=== PATIENT | female | born 1935 | race Caucasian/White ===

== ENCOUNTER 2018-07-17 18:03 | Inpatient (IN) | payer MEDICARE ==
[~2018-07-17] VITALS: Ht 162.6 cm; Wt 72.7 kg
[2018-07-17] MEDS ORDERED: ASPIRIN81 MG PO (18:06)
[2018-07-17] MEDS ORDERED: NORVASC5 MG PO (18:06)
[2018-07-17] MEDS ORDERED: PLAVIX75 MG PO (18:06)
[2018-07-17] MEDS ORDERED: COZAAR100 MG PO (18:06)
[2018-07-17] MEDS ORDERED: PROZAC10 MG PO (18:06)
[2018-07-17] MEDS ORDERED: ATIVAN1 MG PO (18:07)
[2018-07-17 19:01] VITALS: BP 183/59
--- NOTE | 2018-07-17 19:20 | NUR ---
PATIENT AWAKE AND ALERT, COLOR WNL FOR RACE, RESPIRATIONS EVEN AND UNLABORED. BLANKET GIVEN FOR COMFORT, HOB ADJUSTED FOR COMFORT. UPDATED ON PLAN OF CARE AND DELAYS IN CARE. WILL CONTINUE TO MONITOR.
--- NOTE | 2018-07-17 20:20 | NUR ---
PATIENT AWAKE AND ALERT. ASSISTED TO BEDSIDE COMMODE. FAMILY UPDATED ON PLAN OF CARE. WILL CONTINUE TO MONITOR.
[2018-07-17 20:24] LABS: BASOPHILS 0.2 % (0-2); EOSINOPHILS 0.3 % (0-7); HEMATOCRIT 40.6 % (36.0-48.0); HEMOGLOBIN 14.2 g/dL (12-16); IMMATURE GRANULOCYTES 0.3 % (0-5); LYMPHOCYTES 21.4 % (15-50); MCH 31.1 pg (26.0-34.0); MCV 88.8 fL (80.0-100.0); MEAN PLATELET VOLUME 10.1 fL (7.4-10.4); MONOCYTES 6.6 % (2-11); NEUTROPHILS 71.2 % (40-80); PLATELET COUNT 157 10x3/uL (130-400); RBC 4.57 10x6/uL (4.00-5.40); RDW 14.2 % (11.5-14.5)
[2018-07-17 20:31] VITALS: BP 172/63
[2018-07-17 20:47] LABS: ALBUMIN 3.4 g/dL (3.4-5.0); ALKALINE PHOSPHATASE 84 U/L (46-116); ALT (SGPT) 19 U/L (10-68); BILIRUBIN - TOTAL 1.32 mg/dL (0.2-1.3); CALC OSMOLALITY 279 mosm/kg (275-300); CALCIUM 8.2 mg/dL (8.5-10.1); CARBON DIOXIDE 23.1 mmol/L (21.0-32.0); CHLORIDE - SERUM 105 mmol/L (98-107); CREATININE - SERUM 1.1 mg/dL (0.6-1.3); GLUCOSE 118 mg/dL (74-106); POTASSIUM - SERUM 4.1 mmol/L (3.5-5.1); PROTEIN - SERUM 6.4 g/dL (6.4-8.2); SODIUM 139 mmol/L (136-145); UREA NITROGEN 15 mg/dL (7-18); eGFR NON AFRICAN AMERICAN 50 mL/min (90-120)
[2018-07-17 20:58] LABS: CKMB 1.1 U/L (0.0-3.6); CREATINE KINASE 52 UL (21-215); TROPONIN-I 0.029 ng/mL (0.000-0.060)
[2018-07-17 21:01] VITALS: BP 194/59
--- NOTE | 2018-07-17 21:20 | NUR ---
PATIENT AWAKE AND ALERT. FAMILY AT BEDSIDE. NO NEEDS NOTED. WILL CONTINUE TO MONITOR.
--- NOTE | 2018-07-17 22:28 | NUR ---
PATIENT GIVEN SANDWICH TRAY AND JUICE. NO OTHER NEEDS NOTED. WILL CONTINUE TO MONITOR.
[2018-07-17 23:15] VITALS: BP 159/55
[2018-07-18] VITALS (8 sets, daily range): BP systolic 124–226; BP diastolic 43–83; Ht 162.6 cm; Wt 72.7 kg
--- NOTE | 2018-07-18 | NUR ---
PATIENT SLEEPING, RESPIRATIONS EVEN AND UNLABORED. NO NEEDS NOTED. WILL CONTINUE TO MONITOR.
--- NOTE | 2018-07-18 01:00 | NUR ---
PATIENT AWOKE TO VERBAL STIMULI. SHE WAS GIVEN A WARM BLANKET AND NONSLIP SOCKS. SHE WAS UPDATED ON PLAN OF CARE AND DELAYS IN CARE. WILL CONTINUE TO MONITOR.
--- NOTE | 2018-07-18 02:00 | NUR ---
PATIENT SLEEPING, RESPIRATIONS EVEN AND UNLABORED. NO NEEDS NOTED. WILL CONTINUE TO MONITOR.
[2018-07-18 02:57] LABS: BASOPHILS 0.2 % (0-2); EOSINOPHILS 0.7 % (0-7); HEMATOCRIT 37.6 % (36.0-48.0); HEMOGLOBIN 13.1 g/dL (12-16); IMMATURE GRANULOCYTES 0.2 % (0-5); LYMPHOCYTES 25.5 % (15-50); MCH 30.9 pg (26.0-34.0); MCHC 34.8 g/dL (31.0-37.0); MCV 88.7 fL (80.0-100.0); MEAN PLATELET VOLUME 10.3 fL (7.4-10.4); MONOCYTES 8.5 % (2-11); NEUTROPHILS 64.9 % (40-80); PLATELET COUNT 153 10x3/uL (130-400); RBC 4.24 10x6/uL (4.00-5.40); RDW 14.2 % (11.5-14.5); WBC 5.9 10x3/uL (4.8-10.8)
--- NOTE | 2018-07-18 03:00 | NUR ---
PATIENT SLEEPIG. RESPIRATIONS EVEN AND UNLABORED. COLOR WNL FOR RACE. WILL CONTINUE TO MONITOR.
[2018-07-18 03:11] LABS: ANION GAP 10.8 mmol/L (8-16); CALCIUM 8.3 mg/dL (8.5-10.1); CARBON DIOXIDE 28.3 mmol/L (21.0-32.0); CREATININE - SERUM 1.3 mg/dL (0.6-1.3); POTASSIUM - SERUM 4.1 mmol/L (3.5-5.1); TROPONIN-I 0.022 ng/mL (0.000-0.060)
[2018-07-18 19:33] LABS: COLOR YELLOW (YELLOW)
[2018-07-18 19:34] LABS: APPEARANCE HAZY (CLEAR); BILIRUBIN NEGATIVE (NEGATIVE); EPITHELIAL CELLS 0-5 /hpf (0-5); GLUCOSE NEGATIVE (NEGATIVE); KETONE NEGATIVE (NEGATIVE); NITRITE POSITIVE (NEGATIVE); PROTEIN 1+ mg/dL (NEGATIVE); RED CELLS - URINE 0-5 /hpf (0-5); UROBILINOGEN NORMAL (NORMAL); WHITE CELLS - URINE 25-50 /hpf (0-5)
[2018-07-18 19:35] LABS: BACTERIA MANY /hpf (NONE SEEN)
--- NOTE | 2018-07-18 19:41 | NUR ---
AWAKE,ALERT,NO COMPLAINTS VOICED. RESP EVEN AND UNLABORED. SL TO LEFT HAND INTACT WITHOUT REDNESS OR EDEMA NOTED.NATALIE EUNICE TO BED AND FUNCTIONING. CL IN REACH
[2018-07-19 01:16] VITALS: BP 185/58
--- NOTE | 2018-07-19 03:03 | NUR ---
I have reviewed this patient and I concur with the Shift Assessment completed by the Licensed Practical Nurse today this shift.
[2018-07-19 04:37] VITALS: BP 190/64
[2018-07-19 05:26] LABS: BASOPHILS 0.2 % (0-2); EOSINOPHILS 1.5 % (0-7); HEMATOCRIT 39.3 % (36.0-48.0); HEMOGLOBIN 13.4 g/dL (12-16); IMMATURE GRANULOCYTES 0.2 % (0-5); LYMPHOCYTES 37.2 % (15-50); MCH 30.8 pg (26.0-34.0); MCHC 34.1 g/dL (31.0-37.0); MCV 90.3 fL (80.0-100.0); MEAN PLATELET VOLUME 10.5 fL (7.4-10.4); MONOCYTES 8.2 % (2-11); NEUTROPHILS 52.7 % (40-80); PLATELET COUNT 153 10x3/uL (130-400); RBC 4.35 10x6/uL (4.00-5.40); RDW 14.1 % (11.5-14.5); WBC 5.4 10x3/uL (4.8-10.8)
[2018-07-19 05:47] LABS: ANION GAP 11.8 mmol/L (8-16); CALCIUM 8.5 mg/dL (8.5-10.1); CARBON DIOXIDE 26.3 mmol/L (21.0-32.0); CREATININE - SERUM 1.2 mg/dL (0.6-1.3); POTASSIUM - SERUM 4.1 mmol/L (3.5-5.1)
--- NOTE | 2018-07-19 08:30 | NUR ---
PATIENT ADMITTED FOR HYPERTENSIVE CRISIS, WITH B/P TRENDING DOWN SINCE YESTERDAY, PATIENT STARTED ON IV ANTIBIOTICS FOR UTI. UNABLE TO FLUSH IV TO LEFT HAND WITH REDNESS NOTED AND PAIN. RESTARTED IV TO RIGHT FOREARM WITH 22G X1 STICK. PATIENT TOLERATED WELL.
[2018-07-19 10:39] VITALS: BP 174/49
[2018-07-19 13:03] VITALS: BP 153/47
[2018-07-19 17:59] VITALS: BP 108/51
--- NOTE | 2018-07-19 19:00 | NUR ---
BEDSIDE REPORT RECEIVED AND CARE OF PT ASSUMED. PT LYING IN LOW SULLIVAN'S POSITION WITH EYES CLOSED. IV IN RIGHT FA SALINE LOCKED. TELEMETRY IN USE AND READING SB AT THIS ASSESSMENT. WILL MONITOR FOR NEEDS.
--- NOTE | 2018-07-19 19:30 | NUR ---
PT CLEANED AND ALL BEDDING AND GOWN CHANGED DUE TO INCONTINENCE. WILL CONTINUE TO MONITOR FOR NEEDS.
[2018-07-19 20:20] VITALS: BP 156/55
--- NOTE | 2018-07-19 20:42 | NUR ---
HS MEDICATIONS GIVEN. WILL CONTINUE TO MONITOR FOR NEEDS. BED ALARM ACTIVATED FOR SAFETY.
[2018-07-20 00:31] VITALS: BP 167/50
--- NOTE | 2018-07-20 03:15 | NUR ---
ALL LINENS AND GOWN CHANGED DUE TO INCONTINENCE. POSITIONED IN BED FOR COMFORT.
[2018-07-20 04:59] LABS: BASOPHILS 0.2 % (0-2); EOSINOPHILS 2.3 % (0-7); HEMATOCRIT 38.7 % (36.0-48.0); HEMOGLOBIN 13.3 g/dL (12-16); IMMATURE GRANULOCYTES 0.2 % (0-5); LYMPHOCYTES 31.4 % (15-50); MCH 31.1 pg (26.0-34.0); MCHC 34.4 g/dL (31.0-37.0); MCV 90.6 fL (80.0-100.0); MEAN PLATELET VOLUME 10.3 fL (7.4-10.4); MONOCYTES 9.2 % (2-11); NEUTROPHILS 56.7 % (40-80); PLATELET COUNT 151 10x3/uL (130-400); RBC 4.27 10x6/uL (4.00-5.40); RDW 14.1 % (11.5-14.5); WBC 5.7 10x3/uL (4.8-10.8)
[2018-07-20 05:20] VITALS: BP 160/49
[2018-07-20 05:33] LABS: CALCIUM 8.5 mg/dL (8.5-10.1); CARBON DIOXIDE 27.1 mmol/L (21.0-32.0); CREATININE - SERUM 1.4 mg/dL (0.6-1.3); POTASSIUM - SERUM 4.1 mmol/L (3.5-5.1)
[2018-07-20 09:38] VITALS: BP 187/46
[2018-07-20] MEDS ORDERED: NORVASC10 MG PO (11:13)
[2018-07-20] MEDS ORDERED: LEVOFLOXACIN500 MG PO (11:14)
[2018-07-20] MEDS ORDERED: HYDRALAZINE HCL50 MG PO (11:14)
[2018-07-20] MEDS ORDERED: METOPROLOL TART50 MG PO (11:14)
--- NOTE | 2018-07-20 12:17 | MORECARE ---
CASE MANAGEMENT DISCHARGE SUMMARY PATIENT: SHERI SORIA UNIT: [id number] ADM DATE: 07/18/18 AGE: 82 : 36 SEX: F ROOM/BED: D.2217 AUTHOR: JOHN ARCE PHYSICIAN: REFERRING PHYSICIAN: JACKIE CLEMENTE MD DATE OF SERVICE: 07/20/18 Discharge Plan Patient Name: SHERI SORIA Facility: [facility]:[place] : 1935 Planned Disposition: Home Health Service Anticipated Discharge Date: Discharge Date: Expected LOS: Initial Reviewer: [email or web address] Initial Review Date: 07/18/2018 Generated: 07/20/18 1:16 pm Patient Name: SHERI SORIA Page [id number] at 1217 All edits/amendments must be made on the electronic document DICTATION DATE: 07/20/18 1216 GAS TRANSFER OPERATOR: KLAUDIA 07/20/18 1216 RPT#: [id number] DC DATE: STATUS: ADM IN [facility] [address] [place] [address] END OF REPORT
--- NOTE | 2018-07-20 12:26 | MORECARE ---
CASE MANAGEMENT DISCHARGE SUMMARY PATIENT: SHERI SORIA UNIT: [id number] ADM DATE: 07/18/18 AGE: 82 : 36 SEX: F ROOM/BED: D.2217 AUTHOR: [email or web address] PHYSICIAN: REFERRING PHYSICIAN: JACKIE CLEMENTE MD DATE OF SERVICE: 07/20/18 Discharge Plan Patient Name: SHERI SORIA Facility: [facility]:[place] : 1935 Planned Disposition: Home Health Service Anticipated Discharge Date: Discharge Date: Expected LOS: Initial Reviewer: [email or web address] Initial Review Date: 07/18/2018 Generated: 07/20/18 1:25 pm Comments DCP- Discharge Planning Updated by [email or web address]: Christiana Hugo on 07/20/18 11:[address] Patient Name: SHERI SORIA Admission Status: ER Accout number: [id number] Admission Date: 07-18-2018 : 1935 Admission Diagnosis: Attending: JACKIE CLEMENTE Current LOS: 2 Anticipated DC Date: Planned Disposition: Home Health Service Primary Insurance: MEDICARE A & B Discharge Planning Comments: CM met with patient to complete initial dc planning assessment. CM educated patient on the CM role and verbal consent given by patient to complete assessment. Patient lives at home with her where she is independent with her care. At discharge patient plans to return home and feels this is a safe discharge. 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 She stated that she is current with [facility] [employer] [facility] (her granddaughter works for them) She has a walker, shower chair, wheelchair at home. Patient denied known discharge needs at this time. CM will continue to follow and will assist as needed with dc plans/needs. Database Management System Specialist: Christiana Hugo DCPIA - Discharge Planning Initial Assessment Updated by [email or web address]: Christiana Hugo on 07/20/18 12:17 pm * Is the patient Alert and Oriented? Yes * How many steps to enter\exit or inside your home? * PCP [facility] * [facility] * Preadmission Environment Home with Family * ADLs Independent * Equipment Rolling Walker Shower Chair Walker Wheelchair * List name and contact numbers for known caregivers / representatives who currently or will assist patient after discharge: IRVING (JAMIE) [phone] RONNA (GILMA) * Verbal permission to speak to the caregivers and representatives has been obtained from the patient. Yes * Community resources currently utilized Home Health * Please name any agencies selected above. [facility] * Additional services required to return to the preadmission environment? No * Can the patient safely return to the preadmission environment? Yes * Has this patient been hospitalized within the prior 30 days at any hospital? No Last DP export: 07/20/18 11:17 a Patient Name: SHERI SORIA Page [phone] at 1226 All edits/amendments must be made on the electronic document DICTATION DATE: 07/20/181224 PERFUSIONIST: KLAUDIA 07/20/181224 RPT#: [id number] DC DATE: STATUS: ADM IN [facility] [address] [place] [address] END OF REPORT
--- NOTE | 2018-07-20 12:30 | NUR ---
PATIENT STATED SHE HAS HAD HER FLU SHOT
[2018-07-20 13:55] VITALS: BP 164/52
== END 2018-07-20 14:26 | disposition home health service (06) | DRG 305 ==
LOC: D.ER 18:03 → D.MS 21:47 → OBSVTIME 21:47 → D.EDHOLD 21:47 → D.MS 07-18 05:30
PROVIDERS: Family Medicine; ADMIT Internal Medicine Nephrology; ATTEND Internal Medicine Nephrology
DX: I16.0 Hypertensive urgency (principal); N39.0 Urinary tract infection, site not specified; F03.90 Unspecified dementia, unspecified severity, without behavioral disturbance, psychotic disturbance, mood disturbance, and anxiety

== ENCOUNTER 2018-08-06 23:10 | Emergency (ER) | payer MEDICARE ==
[~2018-08-06] VITALS: Ht 162.6 cm; Wt 79.5 kg
[~2018-08-06 23:10] MED LIST: ASPIRIN81 MG PO; ATIVAN1 MG PO; COZAAR100 MG PO; HYDRALAZINE HCL50 MG PO; LEVOFLOXACIN500 MG PO; METOPROLOL TART50 MG PO; NORVASC10 MG PO; NORVASC5 MG PO; PLAVIX75 MG PO; PROZAC10 MG PO
[2018-08-06 23:22] VITALS: Ht 162.6 cm; Wt 79.5 kg
[2018-08-07 01:22] LABS: APPEARANCE CLEAR (CLEAR); BILIRUBIN NEGATIVE (NEGATIVE); COLOR STRAW (YELLOW); GLUCOSE NEGATIVE (NEGATIVE); KETONE NEGATIVE (NEGATIVE); NITRITE NEGATIVE (NEGATIVE); PROTEIN 2+ mg/dL (NEGATIVE); UROBILINOGEN NORMAL (NORMAL)
[2018-08-07 01:31] LABS: HEMATOCRIT 37.6 % (36.0-48.0); LYMPHOCYTES 23.5 % (15-50); MCH 30.5 pg (26.0-34.0); MCHC 34.6 g/dL (31.0-37.0); MCV 88.3 fL (80.0-100.0); MEAN PLATELET VOLUME 9.2 fL (7.4-10.4); NEUTROPHILS 69.4 % (40-80); PLATELET COUNT 171 10x3/uL (130-400); RBC 4.26 10x6/uL (4.00-5.40); WBC 6.6 10x3/uL (4.8-10.8)
[2018-08-07 01:34] LABS: BACTERIA FEW /hpf (NONE SEEN); EPITHELIAL CELLS 0-5 /hpf (0-5); RED CELLS - URINE 0-5 /hpf (0-5); WHITE CELLS - URINE RARE /hpf (0-5)
[2018-08-07 01:36] LABS: ALBUMIN 3.2 g/dL (3.4-5.0); ANION GAP 12.6 mmol/L (8-16); BILIRUBIN - TOTAL 1.08 mg/dL (0.2-1.3); CALCIUM 8.4 mg/dL (8.5-10.1); CARBON DIOXIDE 26.3 mmol/L (21.0-32.0); CREATININE - SERUM 1.1 mg/dL (0.6-1.3); POTASSIUM - SERUM 3.9 mmol/L (3.5-5.1); PROTEIN - SERUM 6.8 g/dL (6.4-8.2)
[2018-08-07 01:41] LABS: TROPONIN-I 0.022 ng/mL (0.000-0.060)
[2018-08-07] MEDS ORDERED: ZOFRAN8 MG PO (01:51)
[2018-08-07 02:53] VITALS: BP 198/59
== END 2018-08-07 02:53 | disposition home or self-care (01) ==
LOC: D.ER 23:10
PROVIDERS: Family Medicine
DX: R11.0 Nausea (principal); R03.0 Elevated blood-pressure reading, without diagnosis of hypertension; Z86.73 Personal history of transient ischemic attack (TIA), and cerebral infarction without residual deficits

== ENCOUNTER 2020-10-12 15:13 | Inpatient (IN) | payer MEDICARE ==
[~2020-10-12] VITALS: Ht 162.6 cm; Wt 59.0 kg
--- NOTE | ~2020-10-12 | HEMODYNAMI ---
PATIENT:SHERI SORIA MEDICAL RECORD: [id number] : 37 LOCATION:[facility] D.2119 ADMISSION DATE: 10/12/20 Generatedon:114:54 Patient name: SHERI SORIA Patient #: [id number] SSN: [id number] : 1935 Date of study: 10/14/2020 Page: Of Hemodynamic Procedure Report Patient Data Patient Demographics Procedure consent was obtained First Name: SHERI Gender: Female Last Name: YANG : 1935 Patient #: [id number] Age: 84 year(s) Race: SSN: [id number] Additional ID: [id number] Contact details Address: [address] [place] [address] State: [place] City: [facility] Zip code: [address] Past Medical History Allergies Allergen Reaction Date Comments Reported JHONATAN inhibitors 10/14/2020 Sulfa drugs 10/14/2020 Admission Admission Data Admission Date: 10/12/2020 Admission Time: 20:01 Arrival Date: 10/13/2020 Arrival Time: 0:00 Admit Source: Other Insurance Payor: Medicare Room #: D.2119 [facility] #: [id number] Height (in.): 64 BSA: 1.64 (m2) Height (cm.): 162.56 BMI: 22.71 (kg/m2) Weight (lbs.): 132.28 Weight (kg.): 60 Lab Results Lab Result Date: 10/14/2020 Lab Result Time: 0:00 Biochemistry Name Units Result Min Max BUN mg/dl 43 --(----)-* 7 18 Creatinine mg/dl 1.6 --(----)-* 0.6 1.3 eGFR ml/min 33 *-(----)-- 90 120 NONAFRICAN CBC Name Units Result Min Max Hematocrit % 40 -*(----)-- 42 54 Hemoglobin g/dl 13.8 --(*---)-- 13.5 17.5 Procedure Procedure Types Cath Procedure Diagnostic Procedure [facility] w/Coronaries FFR/IVUS FFR Initial Sedation Charges Moderate Sedation 25-39 minutes PCI Procedure Coronary Stent Coronary Stent Initial Hemochron ACT Test Procedure Description Procedure Date Procedure Date: 10/14/2020 Procedure Start Time: 14:12 Procedure End Time: 14:48 Procedure Staff Name Function Jace Ramirez MD Performing Physician Demetria Ruvalcaba RT Monitor Maame Hernandez RT Scrub Alli Dooley RN Nurse Indication Shortness of breath Procedure Data Cath Procedure Fluoroscopy Diagnostic fluoroscopy Total fluoroscopy Time: 9.4 time: 9.4 min min Diagnostic fluoroscopy Total fluoroscopy dose: 486 dose: 486 mGy mGy Contrast Material Contrast Material Type Amount (ml) Isovue 370 131 Entry Location Entry Primary Successful Side Size Upsize Upsize Entry Closure Succes sful Closure Location (Fr) 1 (Fr) 2 (Fr) Remarks Device Remarks Femoral Right 5 Fr 6 Fr artery Short Estimated blood loss: 10 ml Diagnostic catheters Device Type Used For End Catheter Placement MULTIPACK JL 4.0 5Fr Procedure catheter MULTIPACK 3DRC 5Fr Procedure catheter MULTIPACK Pigtail 5 Fr Procedure catheter DIAGNOSTIC 6Fr JL 4.0 Procedure catheter ([id number]) Procedure Complications No complications Procedure Medications Medication Administration Route Dosage 0.9% NaCl I.V. 100 ml/hr Oxygen etCO2 Nasal cannula 2 l/min Heparin Flush Bag added to field 2 bags (1000units/500ml NS) Lidocaine 2% added to field 20 Versed I.V. 0.5 mg Fentanyl I.V. 25 mcg Versed I.V. 0.5 mg Heparin Bolus I.V. 6000 units Plavix P.O. 600 mg Mechanical Ventricular Support Other mechanical ventricular support: Hemodynamics Rest BSA: 1.64 (m2) HGB: 13.8 (g/dl) O2 Consumption: Estimated: 134.79 (ml/min) O2 Co nsumption indexed: Estimated:82.19 (ml/min/m) Heart Rate: 51 (bpm) Pressure Samples Time Site Value (mmHg) Purpose Heart Use Rate(bpm) 14:20 LV 154/-3,8 Snapshot 60 14:21 AO 129/68(81) Pullback 123 Gradients Valve Time Site Site 2 Mean SEP/DFP Peak To Heart Use 1 (mmHg) (sec/min) Peak Rate (mmHg) (bpm) Aortic 14:21 LV AO 123 129/68(81) Snapshots Pre Cath Intra NCS Post Cath Vital Signs Time Heart Resp SPO2 etCO2 NIBP (mmHg) Rhythm Pain Sedation Rate (ipm) (%) (mmHg) Status Level (bpm) 14:05:07 51 12 95 24 150/54(115) SB 0 (11) 10(A) , No pain 14:10:15 47 10 94 27.7 141/55(111) SB 0 (11) 10(A) , No pain 14:14:39 47 10 96 25.4 137/51(101) SB 0 (11) 9(A) , No pain 14:18:57 48 10 95 25.4 142/62(105) SB 0 (11) 9(A) , No pain 14:23:19 53 10 96 14.2 147/52(113) SB 0 (11) 9(A) , No pain 14:28:35 48 10 93 30 148/48(105) SB 0 (11) 9(A) , No pain 14:32:59 50 10 94 9 150/55(107) SB 0 (11) 9(A) , No pain 14:38:16 49 10 96 0.7 156/56(112) SB 0 (11) 9(A) , No pain 14:42:43 49 10 96 0 151/61(117) SB 0 (11) 9(A) , No pain 14:47:09 47 10 95 0 160/60(116) SB 0 (11) 9(A) , No pain 14:51:37 48 12 96 0 157/55(117) SB 0 (11) 10(A) , No pain Medications Time Medication Route Dose Verified Delivered Reason Notes Effectiveness by by 14:05:03 0.9% NaCl I.V. 100 Jace Alli used for ml/hr James Dooley balance weigher 14:05:13 Oxygen etCO2 2 Jace Alli used for Nasal l/min James Dooley balance weigher cannula 14:05:21 Heparin Flush added 2 Jace Jace for local Bag to bags James Ramirez MD anesthetic (1000units/500ml field NS) 14:05:30 Lidocaine 2% added 20ml Jace Jace for local to vial James Ramirez MD anesthetic field 14:08:04 Versed I.V. 0.5 Jace Alli for sedation mg James Dooley RN 14:08:11 Fentanyl I.V. 25 Jace Alli for sedation mcg James Dooley RN 14:12:51 Versed I.V. 0.5 Jace Alli for sedation mg James Dooley RN 14:25:21 Heparin Bolus I.V. 6000 Jace Alli for verif ied units James Dooley RN anticoagulation per fidelia moscoso rn 14:53:33 Plavix P.O. 600 Jace Alli for mg James Dooley RN antiplatelet therapy Procedure Log Time Note 13:42:02 Demetria Ruvalcaba RT(R) sent for patient. Start room use. 13:42:03 Time tracking: Regular hours (M-F 7:00 - 5:00) 13:42:07 Plan of Care:Hemodynamics will remain stable., Cardiac rhythm will remain stable., Comfort level will be maintained., Respiratory function will remain adequate., Patient/ family verbilizes understanding of procedure., Procedure tolerated without complication.. 13:44:52 H&P Date Dictated: 10/12/2020 ER History on chart.. 13:45:02 Patient allergic to JHONATAN inhibitors 13:45:06 Patient allergic to Sulfa drugs 13:46:22 Lab Result : Creatinine 1.6 mg/dl 13:46:22 Lab Result : BUN 43 mg/dl 13:46:22 Lab Result : eGFR NONAFRICAN 33 ml/min 13:46:22 Lab Result : Hematocrit 40 % 13:46:22 Lab Result : Hemoglobin 13.8 g/dl 13:46:38 Indication : Shortness of breath 13:46:52 Patient Weight : 132.28 lbs 13:46:55 Patient Height : 64 inches 13:47:02 Arrival Date: 10/13/2020 12:00:00 AM 13:52:44 Patient received from Med II to CCL 1 Alert and oriented. Tansferred to table in Supine position. 13:52:46 Warm blankets applied, and perez hugger turned on for patient comfort. 13:52:47 Correct patient and procedure confirmed by team. 13:52:48 ECG and BP/O2 sat monitors applied to patient. 13:52:48 Pre-procedure instructions explained to patient. 13:52:49 Pre-op teaching completed and patient verbalized understanding. 14:02:51 Vital chart was started 14:02:55 Family in patients room. 14:02:56 Patient NPO since Midnight. 14:03:00 Is patient on blood thinner?No 14:03:07 Patient not . Patient is over age 55. 14:03:09 Previous problem with sedation/anesthesia? No ? 14:03:12 Patient diabetic? No. 14:03:14 Snore? Yes 14:03:15 Sleep apnea? No 14:03:16 Deviated septum? No 14:03:17 Opens mouth fully? Yes 14:03:18 Sticks out tongue? Yes 14:03:20 Dentures? No ? 14:03:22 Airway obstruction? Yes ? 14:03:26 Pre procedure: right dorsailis pedis pulse 1+ Palpable, but thready & weak; easily obliterated 14:03:33 IV patent on arrival in right wrist with 0.9% NaCl at KVO. 14:03:35 Lab results completed and on chart. 14:03:38 Right groin area was prepped with chlora-prep and draped in sterile fashion 14:03:39 Alarms reviewed by R. N. 14:03:39 Sharps counted by scrub and verified by R.N. 14:03:41 Use device set Femoral Dx 14:03:42 ACIST Syringe (83559) opened to sterile field. 14:03:43 Bag Decanter (2002S) opened to sterile field. 14:03:43 ACIST Hand Control (04710) opened to sterile field. 14:03:44 ACIST Manifold (69394) opened to sterile field. 14:03:45 Tegaderm 4 x 4 (1626W) opened to sterile field. 14:03:45 Medline Cath Pack ([id number]) opened to sterile field. 14:03:46 DIAGNOSTIC Multipack 5Fr catheter set (OM0911) opened to sterile field. 14:03:47 SHEATH 5FR [place] (AWF112) opened to sterile field. 14:03:47 EMERALD Guide Wire (470-098) opened to sterile field. 14:04:29 ACC Patient presents with Unstable Angina CCS Anginal Class 2--Slight limitation of ordinary activity. 14:04:31 Admit Source: Other 14:04:34 Procedure Status Urgent Heart Cath (IP). 14:04:40 Signed procedure consent form obtained from verbally. 14:04:45 Is the patient allergic to Iodine/contrast media? No. 14:04:48 Was the patient premedicated? No 14:04:55 Patient pain scale 0/10 ?. 14:04:59 Stress Test: no; N/A ? 14:05:03 0.9% NaCl 100 ml/hr I.V. was administered by Alli Dooley RN; used for procedure; Verbal order read back and verified. 14:05:13 Oxygen 2 l/min etCO2 Nasal cannula was administered by Alli Dooley RN; used for procedure; Verbal order read back and verified. 14:05:21 Heparin Flush Bag (1000units/500ml NS) 2 bags added to field was administered by Jace Ramirez MD; for local anesthetic; Verbal order read back and verified. 14:05:30 Lidocaine 2% 20ml vial added to field was administered by Jace Ramirez MD; for local anesthetic; Verbal order read back and verified. 14:06:20 Other mechanical ventricular support: 14:06:28 Insurance Payor : Medicare 14:07:05 Baseline sample Acquired. 14:07:06 Full Disclosure recording started 14:07:13 Rhythm: sinus rhythm 14:07:17 --------ALL STOP TIME OUT------ 14:07:19 Final Timeout: patient, procedure, and site verified with staff and physician. All members of the team are in agreement. 14:07:20 Right groin site verified by team. 14:07:25 Fire Safety Assessment: A--An alcohol-based skin anteseptic being used preoperatively., C--Open oxygen or nitrous oxide is being used., D--An ESU, laser, or fiber-optic light is being used. 14:07:29 Physical assessment completed. ASA score P 2 - A patient with mild systemic disease as per Jace Ramirez MD. 14:07:32 3b) 30-44 Moderately reduced kidney function. 14:07:34 Maximum allowable contrast dose (3.7 X eGFR X 0.75)92 ml. 14:07:38 Sedation plan: IV Moderate Sedation Medication:Versed, Fentanyl 14:08:04 Versed 0.5 mg I.V. was administered by Alli Dooley RN; for sedation; Verbal order read back and verified. 14:08:11 Fentanyl 25 mcg I.V. was administered by Alli Dooley RN; for sedation; Verbal order read back and verified. 14:12:02 Procedure started. 14:12:51 Versed 0.5 mg I.V. was administered by Alli Dooley RN; for sedation; Verbal order read back and verified. 14:12:59 Local anesthetic to right femoral artery with Lidocaine 2% by Jace Ramirez MD.INITIAL ACCESS ONLY 14:14:52 J WIRE INSERTED. 14:14:56 A 5 Fr sheath was inserted into the Right Femoral artery 14:15:42 A MULTIPACK JL 4.0 5Fr catheter was advanced over the wire and used for Procedure. 14:16:10 LCA angiography performed. 14:16:14 Injector settings: Ml/sec: 3, Volume: 6, 14:17:13 Catheter exchanged over wire. 14:17:39 A MULTIPACK 3DRC 5Fr catheter was advanced over the wire and used for Procedure. 14:18:04 RCA angiography performed. 14:18:08 Injector settings: Ml/sec: 3, Volume: 6, 14:18:50 Catheter exchanged over wire. 14:19:37 A MULTIPACK Pigtail 5 Fr catheter was advanced over the wire and used for Procedure. 14:19:45 LV gram done using GUEVARA 14:20:42 LV hemodynamics recorded. 14:20:46 Injector settings: Ml/sec: 5, Volume: 15, 14:21:12 EF : 30 % 14:21:21 Catheter exchanged over wire. 14:21:25 Proceeding to intervention. 14:21:32 Use device set RAMIREZ PCI 14:21:34 SHEATH 6FR [place] (IUF106) opened to sterile field. 14:21:35 INFLATOR Merit BasixCompak (OR1003) opened to sterile field. 14:21:36 TUBING High Pressure Extension Tubing (James) ([id number]) opened to sterile field. 14:22:19 [place] OmniWire (22740) opened to sterile field. 14:23:20 Sheath upsized to a 6 Fr Short. 14:23:52 A DIAGNOSTIC 6Fr JL 4.0 catheter ([id number]) was advanced over the wire and used for Procedure. 14:24:51 6 Fr JL 4 guide catheter was inserted over the wire 14:25:21 Heparin Bolus 6000 units I.V. was administered by Alli Dooley RN; for anticoagulation; verified per fidelia moscoso rn Verbal order read back and verified. 14:26:01 Pressure wire advanced. 14:29:24 Wire advanced across lesion. 14:31:30 RCA lesion measured at .33 with IFR 14:34:13 IV Extension Set opened to sterile field. 14:34:53 UNABLE TO CROSS WITH STENT REMOVING STENT. 14:36:17 Inflate balloon Inflation number: 1 A EUPHORA 2.0 x 30 Balloon ([id number]) was prepped and advanced across the Prox RCA , then inflated to 14 YUNIER for 0:13 (min:sec) . 14:36:33 Inflation number: 2 The EUPHORA 2.0 x 30 Balloon ([id number]) was reinflated across the Prox RCA , to 14 YUNIER for 0:13 (min:sec) . 14:36:57 Balloon removed over the wire. 14:39:28 Place stent Inflation Number: 3 A FRANCISCO RX 3.0 x 38 stent ([id number]) was prepped and advanced across the Prox RCA . The stent was deployed at 14 YUNIER for 0:20 (min:sec) . 14:40:11 Stent catheter was removed intact over wire. 14:42:38 Place stent Inflation Number: 4 A FRANCISCO RX 3.0 x 15 stent ([id number]) was prepped and advanced across the Prox RCA . The stent was deployed at 14 YUNIER for 0:14 (min:sec) . 14:43:12 Stent catheter was removed intact over wire. 14:43:13 Wire removed. 14:43:13 Guide catheter removed. 14:44:12 EXOSEAL 6Fr (EX600) opened to sterile field. 14:44:22 Fluoroscopy time 09.40 minutes. 14:44:27 Fluoroscopy dose: 486 mGy 14:44:27 Flurop Dose total: 486 14:44:39 Dose Area Product 25770 mGy/cm. 14:45:02 Procedure ended.(Physican Out) 14:45:12 Contrast amount:Isovue 370 131ml. 14:45:15 Maximum allowable dose exceeded? No. 14:45:16 Sharps counted by scrub and verified by R.N. 14:45:26 Post-op/insertion site Right Femoral artery dressed using a 4 x 4 and Tegaderm. 14:45:32 Post right femoral artery:stable, soft, clean and dry 14:45:34 Post Procedure Pulses reassessed and unchanged 14:45:36 Post procedure: right dorsailis pedis pulse 2+ Normal; easily identifiable; not easily obliterated. 14:45:40 Post-procedure physical assessment completed. ASA score P 2 - A patient with mild systemic disease as per Jace Ramirez MD. 14:45:43 Post procedure rhythm: unchanged. 14:45:45 Estimated blood loss: 10 ml 14:45:47 Post procedure instruction explained to patient.Patient verbalizes understanding. 14:45:47 Patient needs reinforcement of post procedure teaching. 14:47:13 Procedure type changed to Cath procedure, Diagnostic procedure, LHC, C w/Coronaries, FFR/IVUS, FFR Initial, Sedation Charges, Moderate Sedation 25-39 minutes, PCI procedure, Coronary Stent, Coronary Stent Initial, Hemochron ACT Test 14:48:25 Procedure and supply charges have been captured, reviewed, submitted and are correct. 14:48:28 Procedure Complication : No complications 14:48:32 [facility] Findings: MVD- PCI performed (see procedure note) 14:48:33 Operative report dictated upon procedure completion. 14:48:34 See physician's report for complete and final results. 14:48:35 Report given to [facility]. 14:48:39 Patient transfered to [facility] with Bed. 14:48:42 Procedure ended. 14:48:42 Full Disclosure recording stopped 14:48:49 ACC-PCI Only Patient was given prescriptions, or instructed by Jace Ramirez MD to start/continue the following medications upon discharge: Plavix 14:48:50 End room use (Document Last) 14:49:03 End room use (Document Last) 14:49:36 ACT drawn and resulted at 380 seconds. (normal therapeutic range 180-240 seconds). 14:51:46 End room use (Document Last) 14:53:33 Plavix 600 mg P.O. was administered by Alli Dooley RN; for antiplatelet therapy; Verbal order read back and verified. 14:54:23 Vital chart was stopped Intervention Summary Intervention Notes Time ActionType Lesion and Equipment Used Action# Pressure Duration Attributes 14:36:17 Inflate Prox RCA EUPHORA 2.0 x 1 14 00:13 balloon 30 Balloon ([id number]) 14:36:33 Reinflate Prox RCA EUPHORA 2.0 x 2 14 00:13 balloon 30 Balloon ([id number]) 14:39:28 Place stent Prox RCA FRANCISCO RX 3.0 x 3 14 00:21 38 stent ([id number]) 14:42:38 Place stent Prox RCA FRANCISCO RX 3.0 x 4 14 00:14 15 stent ([id number]) Device Usage Item Name Manufacture Quantity Catalog Hospital Part [facility] Lot# / Number Charge Number Stock Stock Serial# Code ACIST Syringe Acist 1 28218 346068 420922 932240 20 (40507) Medical Systems Inc Bag Decanter Microtek 1 2001S 428825 51658 872173 5 (2001S) Medical Inc. ACIST Hand Acist 1 73319 313527 064201 330529 5 Control Medical (02983) Systems Inc ACIST Manifold Acist 1 92739 862666 885485 736972 5 (95492) Medical Systems Inc Tegaderm 4 x 4 3M 1 1626W 998684 585842 876522 5 (1626W) Medline Cath Medline 1 [id number] 968407 68378 043324 5 Pack ([id number]) DIAGNOSTIC Cardinal 1 RF2596 688757 67521 628422 30 Multipack 5Fr Health catheter set (LO1682) SHEATH 5FR Terumo 1 WCU465 625266 777470 588823 5 [place] (GAT887) EMERALD Guide Cardinal 1 502-455 932293 390610 815817 5 Wire (502-455) Health MULTIPACK JL Cardinal 1 033461 5 4.0 5Fr Health catheter MULTIPACK 3DRC Cardinal 1 294856 5 5Fr catheter Health MULTIPACK Cardinal 1 238493 5 Pigtail 5 Fr Health catheter SHEATH 6FR Terumo 1 ZDR830 364371 943596 345828 40 [place] (NOK938) INFLATOR Merit Merit 1 QD2240 336085 723736 804693 15 BasixCompak Medical (KA7129) TUBING High Merit 1 DR1224W 096492 10439 777243 10 Pressure Medical Extension Tubing (Ramirez) ([id number]) [place] 1 0004262 923076 55134 9918 5 OmniWire (33954) DIAGNOSTIC 6Fr Cardinal 1 [id number] 927483 064408 766599 1 JL 4.0 Health catheter (044981R) IV Extension Hospira 1 672448 14035 549797 5 Set EUPHORA 2.0 x Medtronic 1 [id number] 541704 301657 322751 5 [id number] 30 Balloon (KKE0432N) FRANCISCO RX 3.0 x Medtronic 1 [id number] 263265 6864785 058057 5 [id number] 38 stent ([id number]) FRANCISCO RX 3.0 x Medtronic 1 [id number] 684914 9817691 992468 5 [id number] 15 stent ([id number]) EXOSEAL 6Fr Cardinal 1 EX600 566913 094094 325839 10 (EX600) Health Signature Audit [place] Stage Time Signature Unsigned Intra-Procedure 10/14/2020 Demetria Ruvalcaba 2:49:03 PM RT(R) Intra-Procedure 10/14/2020 Alli Dooley RN 2:51:46 PM Intra-Procedure 10/14/2020 Jace Ramirez MD 2:54:21 PM [facility] [address] [place] [address]
[~2020-10-12 15:13] MED LIST changes: +ZOFRAN8 MG PO
[2020-10-12 16:19] LABS: APTT 21.3 SECONDS (22.8-39.4)
[2020-10-12 16:20] LABS: INR 1.06 (0.85-1.17); PROTIME 12.8 SECONDS (11.6-15.0)
[2020-10-12 16:24] LABS: BASOPHILS 0.6 % (0-2); EOSINOPHILS 1.1 % (0-7); HEMATOCRIT 41.4 % (36.0-48.0); LYMPHOCYTES 24.8 % (15-50); MCH 30.4 pg (26.0-34.0); MCHC 33.9 g/dL (31.0-37.0); MCV 89.8 fL (80.0-100.0); MEAN PLATELET VOLUME 8.2 fL (7.4-10.4); MONOCYTES 8.3 % (2-11); NEUTROPHILS 65.2 % (40-80); PLATELET COUNT 167 10x3/uL (130-400); RBC 4.61 10x6/uL (4.00-5.40); RDW 14.5 % (11.5-14.5); WBC 5.5 10x3/uL (4.8-10.8)
[2020-10-12 16:46] LABS: CALC OSMOLALITY 280 mosm/kg (275-300); CALCIUM 8.5 mg/dL (8.5-10.1); CARBON DIOXIDE 23.4 mmol/L (21.0-32.0); CHLORIDE - SERUM 105 mmol/L (98-107); CREATININE - SERUM 1.2 mg/dL (0.6-1.3); GLUCOSE 104 mg/dL (74-106); POTASSIUM - SERUM 4.4 mmol/L (3.5-5.1); SODIUM 138 mmol/L (136-145); UREA NITROGEN 26 mg/dL (7-18); eGFR NON AFRICAN AMERICAN 45 mL/min (90-120)
[2020-10-12 17:02] VITALS: BP 211/67
[2020-10-12 17:07] LABS: ALBUMIN 3.3 g/dL (3.4-5.0); ALKALINE PHOSPHATASE 98 U/L (30-120); ALT (SGPT) 24 U/L (10-68); BILIRUBIN - TOTAL 2.13 mg/dL (0.2-1.3); CREATINE KINASE 66 UL (21-215); PRO BNP 34295 pg/mL (0-450); PROTEIN - SERUM 6.6 g/dL (6.4-8.2)
[2020-10-12 17:13] LABS: TROPONIN-I 0.181 ng/mL (0.000-0.060)
[2020-10-12 18:28] VITALS: BP 225/105
--- NOTE | 2020-10-12 20:29 | NUR ---
LARGE URINE ELIMINATED, CHANGED BEDDING. PT MOVED UP IN BED FOR COMFORT.
[2020-10-12 20:54] VITALS: BP 180/70
[2020-10-12] MEDS ORDERED: XANAX0.25 MG PO (22:05)
[2020-10-12] MEDS ORDERED: CLONIDINE HCL0.1 MG PO (22:06)
[2020-10-12] MEDS ORDERED: TOPROL XL25 MG PO (22:07)
[2020-10-12] MEDS ORDERED: COLACE100 MG PO (22:07)
[2020-10-13] VITALS (7 sets, daily range): BP systolic 160–207; BP diastolic 53–70; Ht 162.6 cm; Wt 59.0 kg
[2020-10-13 01:58] LABS: CKMB 2.7 U/L (0.0-3.6); CREATINE KINASE 80 UL (21-215)
[2020-10-13 02:00] LABS: TROPONIN-I 0.319 ng/mL (0.000-0.060)
[2020-10-13 06:31] LABS: HEMATOCRIT 41.7 % (36.0-48.0); HEMOGLOBIN 14.3 g/dL (12-16); MCH 30.5 pg (26.0-34.0); MCHC 34.3 g/dL (31.0-37.0); MCV 89.1 fL (80.0-100.0); MEAN PLATELET VOLUME 9.1 fL (7.4-10.4); PLATELET COUNT 160 10x3/uL (130-400); RBC 4.68 10x6/uL (4.00-5.40); RDW 14.4 % (11.5-14.5)
[2020-10-13 06:34] LABS: WBC 2.9 10x3/uL (4.8-10.8)
[2020-10-13 06:53] LABS: ALBUMIN 3.1 g/dL (3.4-5.0); ALKALINE PHOSPHATASE 103 U/L (30-120); ALT (SGPT) 25 U/L (10-68); BILIRUBIN - TOTAL 1.83 mg/dL (0.2-1.3); CALCIUM 8.8 mg/dL (8.5-10.1); CHLORIDE - SERUM 104 mmol/L (98-107); CHOL - HDL RATIO 3.5 ratio (2.3-4.1); CHOLESTEROL, TOTAL 203 mg/dL (0-200); CKMB 2.6 U/L (0.0-3.6); CREATINE KINASE 92 UL (21-215); CREATININE - SERUM 1.4 mg/dL (0.6-1.3); HDL CHOLESTEROL 58 mg/dL (32-96); LDL CHOLESTEROL 135 mg/dL (0-100); LDL-HDL RATIO 2.3 ratio (1.5-3.5); PHOSPHOROUS 2.7 mg/dL (2.5-4.9); POTASSIUM - SERUM 4.3 mmol/L (3.5-5.1); PROTEIN - SERUM 6.6 g/dL (6.4-8.2); SODIUM 139 mmol/L (136-145); TRIGLYCERIDE 54 mg/dL (30-200); eGFR NON AFRICAN AMERICAN 38 mL/min (90-120)
[2020-10-13 06:55] LABS: CALC OSMOLALITY 289 mosm/kg (275-300); GLUCOSE 172 mg/dL (74-106); TROPONIN-I 0.317 ng/mL (0.000-0.060); UREA NITROGEN 34 mg/dL (7-18)
--- NOTE | 2020-10-13 07:20 | NUR ---
RECIEVE REPORT. RESTING IN BED WITH EYES CLOSED. NO SIGNS OF DISTRESS. CONTINUE PLAN OF CARE AND SAFETY PRECAUTIONS.
[2020-10-13 12:27] LABS: CREATINE KINASE 99 UL (21-215)
[2020-10-13 12:34] LABS: TROPONIN-I 0.304 ng/mL (0.000-0.060)
[2020-10-13 13:53] LABS: LYMPHOCYTES 18 % (15-50); MONOCYTES 5 % (2-11); NEUTROPHILS 76 % (40-80); PLATELET ESTIMATE NORMAL
[2020-10-14] VITALS (11 sets, daily range): BP systolic 116–183; BP diastolic 45–78
--- NOTE | 2020-10-14 00:34 | NUR ---
EARLIER IN SHIFT, PT ASSISTED TO BEDSIDE COMMODE. SHANTANU WELL. VOIDED 100CC OF YELLOW URINE. PT IS ALERT NO APPARENT DISTRESS.
[2020-10-14 06:16] LABS: BASOPHILS 0.2 % (0-2); EOSINOPHILS 0.1 % (0-7); HEMOGLOBIN 13.8 g/dL (12-16); MCH 30.6 pg (26.0-34.0); MCHC 34.5 g/dL (31.0-37.0); MCV 88.9 fL (80.0-100.0); MEAN PLATELET VOLUME 8.7 fL (7.4-10.4); MONOCYTES 6.5 % (2-11); NEUTROPHILS 71.2 % (40-80); RDW 14.4 % (11.5-14.5)
[2020-10-14 06:32] LABS: ALBUMIN 3.4 g/dL (3.4-5.0); ANION GAP 13.3 mmol/L (8-16); BILIRUBIN - TOTAL 1.58 mg/dL (0.2-1.3); CALCIUM 8.8 mg/dL (8.5-10.1); CARBON DIOXIDE 25.4 mmol/L (21.0-32.0); CREATININE - SERUM 1.6 mg/dL (0.6-1.3); MAGNESIUM - SERUM 2.1 mg/dL (1.8-2.4); PHOSPHOROUS 3.5 mg/dL (2.5-4.9); POTASSIUM - SERUM 3.7 mmol/L (3.5-5.1); PROTEIN - SERUM 6.8 g/dL (6.4-8.2)
[2020-10-14 06:58] LABS: PLATELET COUNT 207 10x3/uL (130-400); WBC 9.4 10x3/uL (4.8-10.8)
[2020-10-14 09:27] LABS: CHOL - HDL RATIO 3.5 ratio (2.3-4.1); LDL-HDL RATIO 2.3 ratio (1.5-3.5)
--- NOTE | 2020-10-14 14:00 | NUR ---
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
--- NOTE | 2020-10-14 20:07 | NUR ---
RECIEVED UP IN BED WITH EYES OPEN. ALERT AND CONFUSED. DSG TO RT GROIN CDI. DENIES ANY NEEDS AT THIS TIME.
[2020-10-15] VITALS: BP 144/55
[2020-10-15 05:38] VITALS: BP 169/49
[2020-10-15 06:03] LABS: BASOPHILS 0.7 % (0-2); HEMATOCRIT 40.4 % (36.0-48.0); HEMOGLOBIN 13.9 g/dL (12-16); MCH 30.6 pg (26.0-34.0); MCHC 34.4 g/dL (31.0-37.0); MCV 89.1 fL (80.0-100.0); MEAN PLATELET VOLUME 8.7 fL (7.4-10.4); NEUTROPHILS 64.3 % (40-80); PLATELET COUNT 191 10x3/uL (130-400); RBC 4.54 10x6/uL (4.00-5.40); RDW 14.4 % (11.5-14.5)
[2020-10-15 06:12] LABS: WBC 6.8 10x3/uL (4.8-10.8)
[2020-10-15 06:21] LABS: ALBUMIN 3.2 g/dL (3.4-5.0); ANION GAP 13.3 mmol/L (8-16); BILIRUBIN - TOTAL 1.72 mg/dL (0.2-1.3); CALCIUM 8.4 mg/dL (8.5-10.1); CARBON DIOXIDE 26.2 mmol/L (21.0-32.0); CREATININE - SERUM 1.6 mg/dL (0.6-1.3); MAGNESIUM - SERUM 2.1 mg/dL (1.8-2.4); PHOSPHOROUS 3.5 mg/dL (2.5-4.9); POTASSIUM - SERUM 3.5 mmol/L (3.5-5.1); PROTEIN - SERUM 6.4 g/dL (6.4-8.2)
[2020-10-15 08:50] VITALS: BP 144/50
[2020-10-15 11:00] VITALS: BP 185/58
--- NOTE | 2020-10-15 12:34 | NUR ---
Nutrition Follow-up: S/p cath yesterday. Nursing reports that pt did not feel like eating this AM. Diet: Regular PO intake: 0-50% Wt: 130# (10/13) Labs noted: K+ 3.5, BUN 35, Cre 1.6, GFR 33, Glu 113, Ca 8.4, PO4 3.5, Alb 3.2 Meds noted: Colace, Protonix, Lasix, electrolyte protocol -Encourage PO intake and honor food preferences within diet restrictions. -Offer nutrition supplements. -Need new wt. -RD follow-up: 10/19
[2020-10-15 15:30] VITALS: BP 170/50
--- NOTE | 2020-10-15 16:20 | MORECARE ---
CASE MANAGEMENT DISCHARGE SUMMARY PATIENT: SHERI SORIA UNIT: [id number] ADM DATE: 10/12/20 AGE: 84 : 36 SEX: F ROOM/BED: D.2119 AUTHOR: YAZMIN,DOC PHYSICIAN: REFERRING PHYSICIAN: BAR TRIVEDI MD DATE OF SERVICE: 10/15/20 Case Management Discharge Planning Summary DCP REVIEW SUMMARY ANTICIPATED D/C DATE: 10/15/2020 EXPECTED LOS : 3 CASE STATUS: DCP Initiated INITIAL REVIEW: 10/15/2020 INITIAL REVIEWER: Susi Willams FINAL DISCHARGE DISPOSITION: : FINAL REVIEWER: FINAL REVIEW DATE: DCP [employer] Questions & Answers QUESTION: ANSWER : PATIENT: SHERI SORIA ENCOUNTER: [id number] MEDICAL RECORD#: [id number] ADMISSION DATE: 10/12/2020 DISCHARGE DATE: ATTENDING MD: BAR REYES : AGE: 84 MARITAL STATUS: M DC PLAN ID: [id number] FACILITY: [facility] PRINTED ON: 10/15/20 16:20 CT All edits/amendments must be made on the electronic document DICTATION DATE: 10/15/201619 PRESS WRITER: DM 10/15/201619 RPT#: [id number] DC DATE: STATUS: ADM IN [facility] [address] [place] [address] END OF REPORT
--- NOTE | 2020-10-15 16:36 | MORECARE ---
CASE MANAGEMENT DISCHARGE SUMMARY PATIENT: SHERI SORIA UNIT: [id number] ADM DATE: 10/12/20 AGE: 84 : 36 SEX: F ROOM/BED: D.9825 AUTHOR: JOHN ARCE PHYSICIAN: REFERRING PHYSICIAN: BAR TRIVEDI MD DATE OF SERVICE: 10/15/20 Case Management Discharge Planning Summary COMMENTS ENTERED DATE: 10/15/20 16:23 CT COMMENT TYPE: Discharge Planning REVIEWER: Susi Willams CM met with patient to discuss discharge planning/needs. Patient states she lives in a single story home with her spouse. States she has no steps to enter the home. States she has a personal healthcare science specialist named Sheri that comes to her home Monday through Monday every day and assist with meal preparation, bathing and dressing. States her does her medication management. States she has a 2 wheeled walker, but typically is in her wheelchair in the home. She has a PCP in [place], but states she cannot remember his name. I informed her of the availability of rehab, home health and additional DME, she declines needs. States "I'm going home." States her grandson will transport her. CM will continue to follow and assist with discharge planning/needs. MDP REVIEW SUMMARY ANTICIPATED D/C DATE: 10/15/2020 EXPECTED LOS : 3 CASE STATUS: DCP Initiated INITIAL REVIEW: 10/15/2020 INITIAL REVIEWER: Susi Willams FINAL DISCHARGE DISPOSITION: : FINAL REVIEWER: FINAL REVIEW DATE: MDP Focus Questions & Answers DCP Evaluation QUESTION: ANSWER Patient and/or caregiver agree upon recommended discharge plan? : Yes Patient's current cognitive status: : *Oriented to person, place, situation, time and present Patient's ability to cope with chronic illness : d. No chronic illness Patient gives permission to discuss discharge plans with: (name, relationship and number) : Yaakov Soria - [phone] Does the patient have the ability to pay for or attain post discharge needs / services? : Yes Physical Status: : Partial care dependence Physical Status: : Mobility impaired Equipment needed for post hospitalization: : None Is there a likelihood that the patient will require additional services to return to the preadmission environment? : No Living Arrangements: : Home with Spouse/Significant Other Partial Dependence, assistance required for: : Dressing Partial Dependence, assistance required for: : Bathing Partial Dependence, assistance required for: : Ambulation / Mobility Results of this evaluation have been discussed with: : Patient Living arrangements comments: : Florentino Soria Baseline cognitive status: : Alert Baseline cognitive status: : *Oriented to person, place, situation, time and present [facility]acy name([facility] Does Patient have transportation to get home and to follow-up medical appointments when discharged from the hospital? : Yes Would patient like to participate in any Care Coordination programs (if applicable): : Not applicable Comments: : States her grandsonYaakov will transport her home Does the patient have electricity at home? : Yes Equipment in use: : Wheelchair Equipment in use: : Walker - Rolling Equipment in use: : Shower Chair Equipment in use: : Other Equipment in use: : Cane - Single Leg Other Equipment comments: : Grab bars in shower Mental health screen: : No mental health history Psychosocial status: : Adult with physical limitations Abuse/Neglect: : None Resources / Services in place: : Private duty care Resources / Services in place: : Medication assistance Contact information for resources in use: : Sheri - does not know the name of the agency DCP Re-evaluation QUESTION: ANSWER Would patient like to participate in any Care Coordination programs (if applicable): : Not applicable PATIENT: SHERI SORIA ENCOUNTER: [id number] MEDICAL RECORD#: [id number] ADMISSION DATE: 10/12/2020 DISCHARGE DATE: ATTENDING MD: BAR REYES : AGE: 84 MARITAL STATUS: M DC PLAN ID: [id number] FACILITY: [facility] PRINTED ON: 10/15/20 16:36 CT All edits/amendments must be made on the electronic document DICTATION DATE: 10/15/201635 COMMUNICATION ARTS LECTURER: DM 10/15/201635 RPT#: [id number] DC DATE: STATUS: ADM IN [facility] [address] [place] [address] END OF REPORT
[2020-10-15 21:34] VITALS: BP 153/54
[2020-10-16 04:32] VITALS: BP 166/49
[2020-10-16 07:50] VITALS: BP 158/44
[2020-10-16 10:55] VITALS: BP 177/41
--- NOTE | 2020-10-16 11:00 | NUR ---
UP AMBULATING HALLWAY WITH PT ASSIST.
[2020-10-16 12:41] LABS: BASOPHILS 0.6 % (0-2); HEMATOCRIT 44.2 % (36.0-48.0); HEMOGLOBIN 14.9 g/dL (12-16); LYMPHOCYTES 24.2 % (15-50); MCH 30.5 pg (26.0-34.0); MCHC 33.8 g/dL (31.0-37.0); MCV 90.2 fL (80.0-100.0); MEAN PLATELET VOLUME 8.8 fL (7.4-10.4); MONOCYTES 8.7 % (2-11); NEUTROPHILS 65.5 % (40-80); PLATELET COUNT 195 10x3/uL (130-400); RDW 14.7 % (11.5-14.5); WBC 6.7 10x3/uL (4.8-10.8)
[2020-10-16 12:54] LABS: ALBUMIN 3.4 g/dL (3.4-5.0); ANION GAP 17.4 mmol/L (8-16); BILIRUBIN - TOTAL 2.36 mg/dL (0.2-1.3); CALCIUM 8.6 mg/dL (8.5-10.1); CARBON DIOXIDE 24.2 mmol/L (21.0-32.0); CREATININE - SERUM 1.7 mg/dL (0.6-1.3); MAGNESIUM - SERUM 2.1 mg/dL (1.8-2.4); PHOSPHOROUS 3.5 mg/dL (2.5-4.9); POTASSIUM - SERUM 3.6 mmol/L (3.5-5.1); PROTEIN - SERUM 6.8 g/dL (6.4-8.2)
[2020-10-16 15:59] VITALS: BP 144/55
[2020-10-16 21:33] VITALS: BP 142/47
[2020-10-17 00:06] VITALS: BP 164/59
[2020-10-17 05:07] VITALS: BP 160/65
[2020-10-17 05:34] LABS: BASOPHILS 0.6 % (0-2); EOSINOPHILS 2.2 % (0-7); HEMATOCRIT 41.6 % (36.0-48.0); HEMOGLOBIN 14.2 g/dL (12-16); LYMPHOCYTES 32.2 % (15-50); MCH 30.6 pg (26.0-34.0); MEAN PLATELET VOLUME 8.8 fL (7.4-10.4); MONOCYTES 10.6 % (2-11); NEUTROPHILS 54.4 % (40-80); RBC 4.62 10x6/uL (4.00-5.40); RDW 14.6 % (11.5-14.5); WBC 5.1 10x3/uL (4.8-10.8)
[2020-10-17 05:35] LABS: PLATELET COUNT 155 10x3/uL (130-400)
[2020-10-17 05:49] LABS: ALBUMIN 3.2 g/dL (3.4-5.0); ANION GAP 12.3 mmol/L (8-16); BILIRUBIN - TOTAL 1.78 mg/dL (0.2-1.3); CALCIUM 8.5 mg/dL (8.5-10.1); CREATININE - SERUM 1.7 mg/dL (0.6-1.3); MAGNESIUM - SERUM 2.3 mg/dL (1.8-2.4); PHOSPHOROUS 3.7 mg/dL (2.5-4.9); POTASSIUM - SERUM 3.3 mmol/L (3.5-5.1); PROTEIN - SERUM 6.4 g/dL (6.4-8.2)
[2020-10-17 07:59] VITALS: BP 146/51; BP 177/56
--- NOTE | 2020-10-17 08:00 | NUR ---
PT RECEIVED AWAKE AND ALERT IN BED. HAVING SOME ANXIETY AND NOT SURE WHAT IS GOING ON, STATES SHE IS SCARED.
--- NOTE | 2020-10-17 10:00 | NUR ---
PT'S FAMILY CALLED FOR HER TO HELP CALM HER DOWN. MEDS GIVEN INCLUDING ANXIETY MED. THERAPY AMBULATED HER AND SHE IS BACK IN BED NOW AND CALMER.
[2020-10-17 12:08] VITALS: BP 128/46
[2020-10-17 15:18] VITALS: BP 131/54
[2020-10-17 20:00] VITALS: BP 168/50
[2020-10-18] VITALS: BP 165/71
[2020-10-18 04:00] VITALS: BP 189/50
[2020-10-18 08:23] VITALS: BP 180/55
[2020-10-18 10:53] LABS: BASOPHILS 0.3 % (0-2); EOSINOPHILS 2.9 % (0-7); HEMATOCRIT 41.4 % (36.0-48.0); HEMOGLOBIN 14.5 g/dL (12-16); IMMATURE GRANULOCYTES 0.2 % (0-5); LYMPHOCYTE ABS# 1.37 10x3/uL (1.18-3.74); LYMPHOCYTES 22.2 % (15-50); MCH 30.9 pg (26.0-34.0); MCV 88.1 fL (80.0-100.0); MEAN PLATELET VOLUME 10.7 fL (7.4-10.4); MONOCYTES 9.6 % (2-11); NEUTROPHIL ABS# 3.99 10x3/uL (1.56-6.13); NEUTROPHILS 64.8 % (40-80); PLATELET COUNT 188 10x3/uL (130-400); RDW 14.4 % (11.5-14.5); WBC 6.2 10x3/uL (4.8-10.8)
[2020-10-18 11:16] LABS: ALBUMIN 3.1 g/dL (3.4-5.0); ANION GAP 11.9 mmol/L (8-16); BILIRUBIN - TOTAL 1.55 mg/dL (0.2-1.3); CALCIUM 8.4 mg/dL (8.5-10.1); CARBON DIOXIDE 26.4 mmol/L (21.0-32.0); CREATININE - SERUM 1.6 mg/dL (0.6-1.3); POTASSIUM - SERUM 3.3 mmol/L (3.5-5.1); PROTEIN - SERUM 6.3 g/dL (6.4-8.2)
[2020-10-18 15:05] VITALS: BP 160/55
[2020-10-18 20:56] VITALS: BP 195/59
[2020-10-19 00:53] VITALS: BP 164/53
[2020-10-19 05:23] VITALS: BP 167/50
[2020-10-19 08:45] LABS: ALBUMIN 3.1 g/dL (3.4-5.0); ANION GAP 13.2 mmol/L (8-16); BILIRUBIN - TOTAL 1.51 mg/dL (0.2-1.3); CALCIUM 8.5 mg/dL (8.5-10.1); CARBON DIOXIDE 24.9 mmol/L (21.0-32.0); CREATININE - SERUM 1.2 mg/dL (0.6-1.3); POTASSIUM - SERUM 3.1 mmol/L (3.5-5.1); PROTEIN - SERUM 6.2 g/dL (6.4-8.2)
[2020-10-19 08:58] LABS: BASOPHILS 0.5 % (0-2); EOSINOPHILS 3.3 % (0-7); HEMATOCRIT 41.5 % (36.0-48.0); HEMOGLOBIN 14.2 g/dL (12-16); LYMPHOCYTES 26.7 % (15-50); MCH 30.7 pg (26.0-34.0); MCHC 34.3 g/dL (31.0-37.0); MCV 89.6 fL (80.0-100.0); MEAN PLATELET VOLUME 9.3 fL (7.4-10.4); MONOCYTES 9.2 % (2-11); NEUTROPHILS 60.3 % (40-80); PLATELET COUNT 158 10x3/uL (130-400); RBC 4.63 10x6/uL (4.00-5.40); RDW 14.4 % (11.5-14.5); WBC 4.9 10x3/uL (4.8-10.8)
[2020-10-19 09:43] VITALS: BP 179/90
[2020-10-19 12:17] VITALS: BP 150/54
--- NOTE | 2020-10-19 12:53 | NUR ---
Nutrition Reassessment/Follow-up: Pt confused. Poor PO intake reported. Awaiting placement. Diet: Regular PO intake: 25% x 3 yesterday No new wt; last wt: 130# (10/13) Labs noted: K+ 3.1, BUN 29, GFR 45, Alb 3.1 Meds noted: Colace, Protonix, NS @ 50, electrolyte protocol Nutrition Diagnosis: -Inadequate energy intake R/T Dx, appetite, AMS, advanced age AEB poor PO intake reported. -Altered nutrition-related lab values R/T kidney dysfunction AEB BUN 29, GFR 45. Nutrition Goals: -PO intake >=75% avg of meals/snacks. -Meet est fluid needs without fluid overload. -Stable dry wt. Nutrition Intervention: -Nutrition needs unchanged since initial assessment; no new wt available. -Encourage PO intake and honor food preferences. -+Ensure with meals. -Need new wt. -RD will follow up within 3-4 days.
--- NOTE | 2020-10-19 19:37 | NUR ---
RECIEVED UP IN BED WITH EYES CLOSED. EASILY AROUSES WITH VERBAL STIMULI. ORIENTED TO NAME. DENIES ANY NEEDS AND NO S/S OF DISTRESS OBSERVED.
[2020-10-19 20:00] VITALS: BP 169/59
--- NOTE | 2020-10-19 21:24 | MORECARE ---
CASE MANAGEMENT DISCHARGE SUMMARY PATIENT: SHERI SORIA UNIT: [id number] ADM DATE: 10/12/20 AGE: 84 : 36 SEX: F ROOM/BED: D.8251 AUTHOR: YAZMIN,DOC PHYSICIAN: REFERRING PHYSICIAN: BAR TRIVEDI MD DATE OF SERVICE: 10/19/20 Case Management Discharge Planning Summary COMMENTS ENTERED DATE: 10/19/20 21:16 CT COMMENT TYPE: Discharge Planning REVIEWER: Briseida Saha LATE ENTRY 10/17/20 CM spoke with patient since she stated that she keeps telling physicians that she is to week to go home. Patient was very drowsy when CM spoke with her but she stated that she now feels like she may need rehab before she goes home. ENTERED DATE: 10/15/20 16:23 CT COMMENT TYPE: Discharge Planning REVIEWER: Susi Willams CM met with patient to discuss discharge planning/needs. Patient states she lives in a single story home with her spouse. States she has no steps to enter the home. States she has a personal director long term care named Sheri that comes to her home Monday through Monday every day and assist with meal preparation, bathing and dressing. States her does her medication management. States she has a 2 wheeled walker, but typically is in her wheelchair in the home. She has a PCP in [place], but states she cannot remember his name. I informed her of the availability of rehab, home health and additional DME, she declines needs. States "I'm going home." States her grandson will transport her. CM will continue to follow and assist with discharge planning/needs. IAP REVIEW SUMMARY ANTICIPATED D/C DATE: 10/15/2020 EXPECTED LOS : 3 CASE STATUS: DCP Initiated INITIAL REVIEW: 10/15/2020 INITIAL REVIEWER: Susi Willams FINAL DISCHARGE DISPOSITION: : FINAL REVIEWER: FINAL REVIEW DATE: DCP Focus Questions & Answers DCP Evaluation QUESTION: ANSWER Patient gives permission to discuss discharge plans with: (name, relationship and number) : Yaakov Soria - [phone] Patient's ability to cope with chronic illness : d. No chronic illness Patient's current cognitive status: : *Oriented to person, place, situation, time and present Patient and/or caregiver agree upon recommended discharge plan? : Yes Physical Status: : Mobility impaired Physical Status: : Partial care dependence Does the patient have the ability to pay for or attain post discharge needs / services? : Yes Partial Dependence, assistance required for: : Ambulation / Mobility Partial Dependence, assistance required for: : Bathing Partial Dependence, assistance required for: : Dressing Living Arrangements: : Home with Spouse/Significant Other Is there a likelihood that the patient will require additional services to return to the preadmission environment? : No Equipment needed for post hospitalization: : None Living arrangements comments: : Florentino Soria Baseline cognitive status: : *Oriented to person, place, situation, time and present Baseline cognitive status: : Alert Results of this evaluation have been discussed with: : Patient Pharmacy name(s): : [facility] Does Patient have transportation to get home and to follow-up medical appointments when discharged from the hospital? : Yes Would patient like to participate in any Care Coordination programs (if applicable): : Not applicable Comments: : States her grandsonYaakov will transport her home Does the patient have electricity at home? : Yes Equipment in use: : Cane - Single Leg Equipment in use: : Other Equipment in use: : Shower Chair Equipment in use: : Walker - Rolling Equipment in use: : Wheelchair Other Equipment comments: : Grab bars in shower Mental health screen: : No mental health history Psychosocial status: : Adult with physical limitations Abuse/Neglect: : None Resources / Services in place: : Medication assistance Resources / Services in place: : Private duty care Contact information for resources in use: : Sheri - does not know the name of the agency DCP Re-evaluation QUESTION: ANSWER Would patient like to participate in any Care Coordination programs (if applicable): : Not applicable PATIENT: SHERI SORIA ENCOUNTER: [id number] MEDICAL RECORD#: [id number] ADMISSION DATE: 10/12/2020 DISCHARGE DATE: ATTENDING MD: BRA REYES : AGE: 84 MARITAL STATUS: M DC PLAN ID: [id number] FACILITY: [facility] PRINTED ON: 10/19/20 21:23 CT All edits/amendments must be made on the electronic document DICTATION DATE: 10/19/202122 GRINDING MACHINE TENDER: KLAUDIA 10/19/202122 RPT#: [id number] [place] DATE: STATUS: ADM IN [facility] [address] [place] [address] END OF REPORT
--- NOTE | 2020-10-19 21:34 | MORECARE ---
CASE MANAGEMENT DISCHARGE SUMMARY PATIENT: SHERI SORIA UNIT: [id number] ADM DATE: 10/12/20 AGE: 84 : 36 SEX: F ROOM/BED: D.0889 AUTHOR: YAZMIN,DOC PHYSICIAN: REFERRING PHYSICIAN: BAR TRIVEDI MD DATE OF SERVICE: 10/19/20 Case Management Discharge Planning Summary COMMENTS ENTERED DATE: 10/19/20 21:19 CT COMMENT TYPE: Discharge Planning REVIEWER: Briseida Saha CM spoke with Shama with inpatient rehab. She stated that patient has been refusing therapy the patient has only had one session since 10/15. Patient may be more appropriate for SNF. Inpatient will continue to watch patient. CM attempted to speak with patient today to see if she would consider SNF for rehab. Patient was to hard to arouse and get an answer. CM will continue to follow and assist as needed with d/c planning / needs. ENTERED DATE: 10/19/20 21:16 CT COMMENT TYPE: Discharge Planning REVIEWER: Briseida Saha LATE ENTRY 10/17/20 CM spoke with patient since she stated that she keeps telling physicians that she is to week to go home. Patient was very drowsy when CM spoke with her but she stated that she now feels like she may need rehab before she goes home. ENTERED DATE: 10/15/20 16:23 CT COMMENT TYPE: Discharge Planning REVIEWER: Susi Willams CM met with patient to discuss discharge planning/needs. Patient states she lives in a single story home with her spouse. States she has no steps to enter the home. States she has a personal health care marketing manager named Sheri that comes to her home Monday through Monday every day and assist with meal preparation, bathing and dressing. States her does her medication management. States she has a 2 wheeled walker, but typically is in her wheelchair in the home. She has a PCP in [place], but states she cannot remember his name. I informed her of the availability of rehab, home health and additional DME, she declines needs. States "I'm going home." States her grandson will transport her. CM will continue to follow and assist with discharge planning/needs. NEP REVIEW SUMMARY ANTICIPATED D/C DATE: 10/15/2020 EXPECTED LOS : 3 CASE STATUS: DCP Initiated INITIAL REVIEW: 10/15/2020 INITIAL REVIEWER: Susi Willams FINAL DISCHARGE DISPOSITION: : FINAL REVIEWER: FINAL REVIEW DATE: DCP Focus Questions & Answers DCP Evaluation QUESTION: ANSWER Patient and/or caregiver agree upon recommended discharge plan? : Yes Patient's current cognitive status: : *Oriented to person, place, situation, time and present Patient's ability to cope with chronic illness : d. No chronic illness Patient gives permission to discuss discharge plans with: (name, relationship and number) : Yaakov Soria - [phone] Does the patient have the ability to pay for or attain post discharge needs / services? : Yes Physical Status: : Partial care dependence Physical Status: : Mobility impaired Equipment needed for post hospitalization: : None Is there a likelihood that the patient will require additional services to return to the preadmission environment? : No Living Arrangements: : Home with Spouse/Significant Other Partial Dependence, assistance required for: : Dressing Partial Dependence, assistance required for: : Bathing Partial Dependence, assistance required for: : Ambulation / Mobility Results of this evaluation have been discussed with: : Patient Living arrangements comments: : Florentino aure Baseline cognitive status: : Alert Baseline cognitive status: : *Oriented to person, place, situation, time and present Pharmacy name(s): : [facility] Does Patient have transportation to get home and to follow-up medical appointments when discharged from the hospital? : Yes Would patient like to participate in any Care Coordination programs (if applicable): : Not applicable Comments: : States her grandson, Yaakov will transport her home Does the patient have electricity at home? : Yes Equipment in use: : Wheelchair Equipment in use: : Walker - Rolling Equipment in use: : Shower Chair Equipment in use: : Other Equipment in use: : Cane - Single Leg Other Equipment comments: : Grab bars in shower Mental health screen: : No mental health history Psychosocial status: : Adult with physical limitations Abuse/Neglect: : None Resources / Services in place: : Private duty care Resources / Services in place: : Medication assistance Contact information for resources in use: : Sheri - does not know the name of the agency DCP Re-evaluation QUESTION: ANSWER Would patient like to participate in any Care Coordination programs (if applicable): : Not applicable PATIENT: SHERI SORIA ENCOUNTER: [id number] MEDICAL RECORD#: [id number] ADMISSION DATE: 10/12/2020 DISCHARGE DATE: ATTENDING MD: BAR REYES : AGE: 84 MARITAL STATUS: M DC PLAN ID: [id number] FACILITY: [facility] PRINTED ON: 10/19/20 21:34 CT All edits/amendments must be made on the electronic document DICTATION DATE: 10/19/202133 DYNAMIC BALANCER SET UP WORKER: KLAUDIA 10/19/202133 RPT#: [id number] DC DATE: STATUS: ADM IN [facility] [address] [place] [address] END OF REPORT
[2020-10-20] VITALS: BP 177/55
[2020-10-20 04:00] VITALS: BP 211/61
[2020-10-20 06:45] LABS: ALBUMIN 2.9 g/dL (3.4-5.0); ANION GAP 10.6 mmol/L (8-16); BILIRUBIN - TOTAL 1.41 mg/dL (0.2-1.3); CALCIUM 8.4 mg/dL (8.5-10.1); CARBON DIOXIDE 25.1 mmol/L (21.0-32.0); CREATININE - SERUM 1.2 mg/dL (0.6-1.3); POTASSIUM - SERUM 3.7 mmol/L (3.5-5.1); PROTEIN - SERUM 6.2 g/dL (6.4-8.2)
[2020-10-20 07:09] LABS: BASOPHILS 0.9 % (0-2); EOSINOPHILS 3.9 % (0-7); HEMATOCRIT 43.9 % (36.0-48.0); HEMOGLOBIN 14.8 g/dL (12-16); LYMPHOCYTES 27.2 % (15-50); MCH 30.7 pg (26.0-34.0); MCHC 33.7 g/dL (31.0-37.0); MCV 91.2 fL (80.0-100.0); MEAN PLATELET VOLUME 8.9 fL (7.4-10.4); MONOCYTES 9.7 % (2-11); NEUTROPHILS 58.3 % (40-80); PLATELET COUNT 158 10x3/uL (130-400); RBC 4.81 10x6/uL (4.00-5.40); RDW 14.5 % (11.5-14.5); WBC 5.3 10x3/uL (4.8-10.8)
--- NOTE | 2020-10-20 08:00 | NUR ---
PT RECEIVED ASLEEP AND LETHARGIC IN BED. AROUSED TO VOICE. WILL ASSIST UP FOR MEAL.
[2020-10-20 08:35] VITALS: BP 207/60
--- NOTE | 2020-10-20 09:00 | NUR ---
ASSIST TO [facility] FOR VOIDING. PUREWICK IN PLACE, REMOVED NOW AWAKE. STATES CONFUSED AND DOES NOT KNOW HOW TO PEE. BACK TO BED AND MEDS GIVEN, ASSIST WITH BREAKFAST, AND SPONGE BATH GIVEN.
--- NOTE | 2020-10-20 10:25 | MORECARE ---
CASE MANAGEMENT DISCHARGE SUMMARY PATIENT: SHERI SORIA UNIT: [id number] ADM DATE: 10/12/20 AGE: 84 : 36 SEX: F ROOM/BED: D.9689 AUTHOR: YAZMIN,DOC PHYSICIAN: REFERRING PHYSICIAN: BAR TRIVEDI MD DATE OF SERVICE: 10/20/20 Case Management Discharge Planning Summary COMMENTS ENTERED DATE: 10/20/20 10:16 CT COMMENT TYPE: Discharge Planning REVIEWER: Susi Willams CM went to patient's room and she is very lethargic and does not answer questions asked. Dr. Long and Scotty Pina present in the room. I called patient's grandson, Yaakov, and left a voice message to return my call concerning discharge planning. CM will continue to follow and assist with discharge planning/needs. ENTERED DATE: 10/19/20 21:19 CT COMMENT TYPE: Discharge Planning REVIEWER: Briseida Saha CM spoke with Shama with inpatient rehab. She stated that patient has been refusing therapy the patient has only had one session since 10/15. Patient may be more appropriate for SNF. Inpatient will continue to watch patient. CM attempted to speak with patient today to see if she would consider SNF for rehab. Patient was to hard to arouse and get an answer. CM will continue to follow and assist as needed with d/c planning / needs. ENTERED DATE: 10/19/20 21:16 CT COMMENT TYPE: Discharge Planning REVIEWER: Briseida Saha LATE ENTRY 10/17/20 CM spoke with patient since she stated that she keeps telling physicians that she is to week to go home. Patient was very drowsy when CM spoke with her but she stated that she now feels like she may need rehab before she goes home. ENTERED DATE: 10/15/20 16:23 CT COMMENT TYPE: Discharge Planning REVIEWER: Susi Willams CM met with patient to discuss discharge planning/needs. Patient states she lives in a single story home with her spouse. States she has no steps to enter the home. States she has a personal animal care service worker named Sheri that comes to her home Monday through Monday every day and assist with meal preparation, bathing and dressing. States her does her medication management. States she has a 2 wheeled walker, but typically is in her wheelchair in the home. She has a PCP in [place], but states she cannot remember his name. I informed her of the availability of rehab, home health and additional DME, she declines needs. States "I'm going home." States her grandson will transport her. CM will continue to follow and assist with discharge planning/needs. DCP REVIEW SUMMARY ANTICIPATED D/C DATE: 10/15/2020 EXPECTED LOS : 3 CASE STATUS: DCP Initiated INITIAL REVIEW: 10/15/2020 INITIAL REVIEWER: Susi Willams FINAL DISCHARGE DISPOSITION: : FINAL REVIEWER: FINAL REVIEW DATE: DCP Focus Questions & Answers DCP Evaluation QUESTION: ANSWER Patient gives permission to discuss discharge plans with: (name, relationship and number) : Yaakov Soria - [phone] Patient's ability to cope with chronic illness : d. No chronic illness Patient's current cognitive status: : *Oriented to person, place, situation, time and present Patient and/or caregiver agree upon recommended discharge plan? : Yes Physical Status: : Mobility impaired Physical Status: : Partial care dependence Does the patient have the ability to pay for or attain post discharge needs / services? : Yes Partial Dependence, assistance required for: : Ambulation / Mobility Partial Dependence, assistance required for: : Bathing Partial Dependence, assistance required for: : Dressing Living Arrangements: : Home with Spouse/Significant Other Is there a likelihood that the patient will require additional services to return to the preadmission environment? : No Equipment needed for post hospitalization: : None Baseline cognitive status: : *Oriented to person, place, situation, time and present Baseline cognitive status: : Alert Living arrangements comments: : Florentino Soria Results of this evaluation have been discussed with: : Patient [facility] Does Patient have transportation to get home and to follow-up medical appointments when discharged from the hospital? : Yes Comments: : States her grandsonYaakov will transport her home Would patient like to participate in any Care Coordination programs (if applicable): : Not applicable Does the patient have electricity at home? : Yes Equipment in use: : Cane - Single Leg Equipment in use: : Other Equipment in use: : Shower Chair Equipment in use: : Walker - Rolling Equipment in use: : Wheelchair Other Equipment comments: : Grab bars in shower Mental health screen: : No mental health history Psychosocial status: : Adult with physical limitations Abuse/Neglect: : None Resources / Services in place: : Medication assistance Resources / Services in place: : Private duty care Contact information for resources in use: : Sheri - does not know the name of the agency DCP Re-evaluation QUESTION: ANSWER Would patient like to participate in any Care Coordination programs (if applicable): : Not applicable PATIENT: SHERI SORIA ENCOUNTER: [id number] MEDICAL RECORD#: [id number] ADMISSION DATE: 10/12/2020 DISCHARGE DATE: ATTENDING MD: BAR REYES : AGE: 84 MARITAL STATUS: M DC PLAN ID: [id number] FACILITY: [facility] PRINTED ON: 10/20/20 10:25 CT All edits/amendments must be made on the electronic document DICTATION DATE: 10/20/20 1025 EXCAVATION LABORER: KLAUDIA 10/20/20 1025 RPT#: [id number] DC DATE: STATUS: ADM IN [facility] [address] [place] [address] END OF REPORT
--- NOTE | 2020-10-20 11:15 | MORECARE ---
CASE MANAGEMENT DISCHARGE SUMMARY PATIENT: SHERI SORIA UNIT: [id number] ADM DATE: 10/12/20 AGE: 84 : 36 SEX: F ROOM/BED: D.5608 AUTHOR: YAZMIN,DOC PHYSICIAN: REFERRING PHYSICIAN: BAR TRIVEDI MD DATE OF SERVICE: 10/20/20 Case Management Discharge Planning Summary COMMENTS ENTERED DATE: 10/20/20 11:03 CT COMMENT TYPE: Discharge Planning REVIEWER: Susi Nuno returned my call and states his grandmother has been at [facility] before for therapy and would like a referral sent there. I called and spoke with Arelis and she states patient would need to have had her Covid vaccine to come there. I called Nathaniel back and left a message on his answering machine. CM will continue to follow and assist with discharge planning/needs. ENTERED DATE: 10/20/20 10:16 CT COMMENT TYPE: Discharge Planning REVIEWER: Susi Екатерина CM went to patient's room and she is very lethargic and does not answer questions asked. Dr. Long and Scotty Pina present in the room. I called patient's grandson, Yaakov, and left a voice message to return my call concerning discharge planning. CM will continue to follow and assist with discharge planning/needs. ENTERED DATE: 10/19/20 21:19 CT COMMENT TYPE: Discharge Planning REVIEWER: Briseida Saha CM spoke with Shama with inpatient rehab. She stated that patient has been refusing therapy the patient has only had one session since 10/15. Patient may be more appropriate for SNF. Inpatient will continue to watch patient. CM attempted to speak with patient today to see if she would consider SNF for rehab. Patient was to hard to arouse and get an answer. CM will continue to follow and assist as needed with d/c planning / needs. ENTERED DATE: 10/19/20 21:16 CT COMMENT TYPE: Discharge Planning REVIEWER: Briseida Saha LATE ENTRY 10/17/20 CM spoke with patient since she stated that she keeps telling physicians that she is to week to go home. Patient was very drowsy when CM spoke with her but she stated that she now feels like she may need rehab before she goes home. ENTERED DATE: 10/15/20 16:23 CT COMMENT TYPE: Discharge Planning REVIEWER: Susi Willams CM met with patient to discuss discharge planning/needs. Patient states she lives in a single story home with her spouse. States she has no steps to enter the home. States she has a personal rn home care named Sheri that comes to her home Monday through Monday every day and assist with meal preparation, bathing and dressing. States her does her medication management. States she has a 2 wheeled walker, but typically is in her wheelchair in the home. She has a PCP in [place], but states she cannot remember his name. I informed her of the availability of rehab, home health and additional DME, she declines needs. States "I'm going home." States her grandson will transport her. CM will continue to follow and assist with discharge planning/needs. PAP REVIEW SUMMARY ANTICIPATED D/C DATE: 10/15/2020 EXPECTED LOS : 3 CASE STATUS: DCP Initiated INITIAL REVIEW: 10/15/2020 INITIAL REVIEWER: Susi Willams FINAL DISCHARGE DISPOSITION: : FINAL REVIEWER: FINAL REVIEW DATE: PAP Focus Questions & Answers DCP Evaluation QUESTION: ANSWER Patient gives permission to discuss discharge plans with: (name, relationship and number) : Yaakov Soria - [phone] Patient's ability to cope with chronic illness : d. No chronic illness Patient's current cognitive status: : *Oriented to person, place, situation, time and present Patient and/or caregiver agree upon recommended discharge plan? : Yes Physical Status: : Mobility impaired Physical Status: : Partial care dependence Does the patient have the ability to pay for or attain post discharge needs / services? : Yes Partial Dependence, assistance required for: : Ambulation / Mobility Partial Dependence, assistance required for: : Bathing Partial Dependence, assistance required for: : Dressing Living Arrangements: : Home with Spouse/Significant Other Is there a likelihood that the patient will require additional services to return to the preadmission environment? : No Equipment needed for post hospitalization: : None Baseline cognitive status: : *Oriented to person, place, situation, time and present Baseline cognitive status: : Alert Living arrangements comments: : Florentino Soria Results of this evaluation have been discussed with: : Patient [facility](s[facility] Does Patient have transportation to get home and to follow-up medical appointments when discharged from the hospital? : Yes Comments: : States her grandsonYaakov will transport her home Would patient like to participate in any Care Coordination programs (if applicable): : Not applicable Does the patient have electricity at home? : Yes Equipment in use: : Cane - Single Leg Equipment in use: : Other Equipment in use: : Shower Chair Equipment in use: : Walker - Rolling Equipment in use: : Wheelchair Other Equipment comments: : Grab bars in shower Mental health screen: : No mental health history Psychosocial status: : Adult with physical limitations Abuse/Neglect: : None Resources / Services in place: : Medication assistance Resources / Services in place: : Private duty care Contact information for resources in use: : Sheri - does not know the name of the agency DCP Re-evaluation QUESTION: ANSWER Would patient like to participate in any Care Coordination programs (if applicable): : Not applicable PATIENT: SHERI SORIA ENCOUNTER: [id number] MEDICAL RECORD#: [id number] ADMISSION DATE: 10/12/2020 DISCHARGE DATE: ATTENDING MD: BAR REYES : AGE: 84 MARITAL STATUS: M DC PLAN ID: [id number] FACILITY: [facility] PRINTED ON: 10/20/20 11:14 CT All edits/amendments must be made on the electronic document DICTATION DATE: 10/20/201113 DIAMOND EXPERT: KLAUDIA 10/20/20 111 RPT#: [id number] DC DATE: STATUS: ADM IN [facility] [address] [place] [address] END OF REPORT
--- NOTE | 2020-10-20 12:02 | MORECARE ---
CASE MANAGEMENT DISCHARGE SUMMARY PATIENT: SHERI SORIA UNIT: [id number] ADM DATE: 10/12/20 AGE: 84 : 36 SEX: F ROOM/BED: D.3771 AUTHOR: YAZMIN,DOC PHYSICIAN: REFERRING PHYSICIAN: BAR TRIVEDI MD DATE OF SERVICE: 10/20/20 Case Management Discharge Planning Summary COMMENTS ENTERED DATE: 10/20/20 11:58 CT COMMENT TYPE: Discharge Planning REVIEWER: Susi Willams CM called patient's spouse and he states patient has not have the Covid vaccine. I informed spouse that [facility] will not accept her since she has not had the vaccine and asked for a second choice. Spouse tells me to call Yaakov or their son, Larry for a second choice for rehab. I attempted to call Larry and did not receive an answer. Awaiting call back from [facility]. ENTERED DATE: 10/20/20 11:03 CT COMMENT TYPE: Discharge Planning REVIEWER: Susi Екатерина Yaakov returned my call and states his grandmother has been at [facility] before for therapy and would like a referral sent there. I called and spoke with Arelis and she states patient would need to have had her Covid vaccine to come there. I called Nathaniel back and left a message on his answering machine. CM will continue to follow and assist with discharge planning/needs. ENTERED DATE: 10/20/20 10:16 CT COMMENT TYPE: Discharge Planning REVIEWER: Susi Willams CM went to patient's room and she is very lethargic and does not answer questions asked. Dr. Long and Scotty Pina present in the room. I called patient's grandson, Yaakov, and left a voice message to return my call concerning discharge planning. CM will continue to follow and assist with discharge planning/needs. ENTERED DATE: 10/19/20 21:19 CT COMMENT TYPE: Discharge Planning REVIEWER: Briseida Saha CM spoke with Shama with inpatient rehab. She stated that patient has been refusing therapy the patient has only had one session since 10/15. Patient may be more appropriate for SNF. Inpatient will continue to watch patient. CM attempted to speak with patient today to see if she would consider SNF for rehab. Patient was to hard to arouse and get an answer. CM will continue to follow and assist as needed with d/c planning / needs. ENTERED DATE: 10/19/20 21:16 CT COMMENT TYPE: Discharge Planning REVIEWER: Briseida Saha LATE ENTRY 10/17/20 CM spoke with patient since she stated that she keeps telling physicians that she is to week to go home. Patient was very drowsy when CM spoke with her but she stated that she now feels like she may need rehab before she goes home. ENTERED DATE: 10/15/20 16:23 CT COMMENT TYPE: Discharge Planning REVIEWER: Susi Willams CM met with patient to discuss discharge planning/needs. Patient states she lives in a single story home with her spouse. States she has no steps to enter the home. States she has a personal progressive care manager named Sheri that comes to her home Monday through Monday every day and assist with meal preparation, bathing and dressing. States her does her medication management. States she has a 2 wheeled walker, but typically is in her wheelchair in the home. She has a PCP in [place], but states she cannot remember his name. I informed her of the availability of rehab, home health and additional DME, she declines needs. States "I'm going home." States her grandson will transport her. CM will continue to follow and assist with discharge planning/needs. [facility] REVIEW SUMMARY ANTICIPATED D/C DATE: 10/15/2020 EXPECTED LOS : 3 CASE STATUS: DCP Initiated INITIAL REVIEW: 10/15/2020 INITIAL REVIEWER: Susi Willams FINAL DISCHARGE DISPOSITION: : FINAL REVIEWER: FINAL REVIEW DATE: DCP Focus Questions & Answers GAP Evaluation QUESTION: ANSWER Patient gives permission to discuss discharge plans with: (name, relationship and number) : Yaakov Soria - [phone] Patient's ability to cope with chronic illness : d. No chronic illness Patient's current cognitive status: : *Oriented to person, place, situation, time and present Patient and/or caregiver agree upon recommended discharge plan? : Yes Physical Status: : Mobility impaired Physical Status: : Partial care dependence Does the patient have the ability to pay for or attain post discharge needs / services? : Yes Partial Dependence, assistance required for: : Ambulation / Mobility Partial Dependence, assistance required for: : Bathing Partial Dependence, assistance required for: : Dressing Living Arrangements: : Home with Spouse/Significant Other Is there a likelihood that the patient will require additional services to return to the preadmission environment? : No Equipment needed for post hospitalization: : None Baseline cognitive status: : *Oriented to person, place, situation, time and present Baseline cognitive status: : Alert Living arrangements comments: : Florentino Soria Results of this evaluation have been discussed with: : Patient [facility](s[facility] Does Patient have transportation to get home and to follow-up medical appointments when discharged from the hospital? : Yes Comments: : States her grandson, Yaakov will transport her home Would patient like to participate in any Care Coordination programs (if applicable): : Not applicable Does the patient have electricity at home? : Yes Equipment in use: : Cane - Single Leg Equipment in use: : Other Equipment in use: : Shower Chair Equipment in use: : Walker - Rolling Equipment in use: : Wheelchair Other Equipment comments: : Grab bars in shower Mental health screen: : No mental health history Psychosocial status: : Adult with physical limitations Abuse/Neglect: : None Resources / Services in place: : Medication assistance Resources / Services in place: : Private duty care Contact information for resources in use: : Sheri - does not know the name of the agency DCP Re-evaluation QUESTION: ANSWER Would patient like to participate in any Care Coordination programs (if applicable): : Not applicable PATIENT: SHERI SORIA ENCOUNTER: [id number] MEDICAL RECORD#: [id number] ADMISSION DATE: 10/12/2020 DISCHARGE DATE: ATTENDING MD: BAR REYES : AGE: 84 MARITAL STATUS: M DC PLAN ID: [id number] FACILITY: [facility] PRINTED ON: 10/20/20 12:02 CT All edits/amendments must be made on the electronic document DICTATION DATE: 10/20/201201 [employer] TEACHER: KLAUDIA 10/20/201201 RPT#: [id number] DC DATE: STATUS: ADM IN [facility] [address] [place] [address] END OF REPORT
[2020-10-20 12:20] VITALS: BP 184/60
[2020-10-20 16:13] VITALS: BP 141/82
--- NOTE | 2020-10-20 19:30 | NUR ---
RECIEVED LAYING IN BED WITH HOB ELEVATED AND EYES CLOSED. AROUSES WITH VERBAL STIMULI. CONFUSED TO PLACE TIME AND SITUATION. NO S/S OF DISTRESS OBSERVED.
--- NOTE | 2020-10-20 21:12 | NUR ---
OT NOTE: PT COMPLETED BED MOBILITY OF SIDE ROLLING WITH MIN-MOD A. PT COMPLETED BRIDGING TO SCOOT UP IN BED WITH MOD A TO STABILIZE FEET. PT COMPLETED FACE HYGIENE WITH MOD A. PT COMPLETED ORAL CARE WITH TOOTHETTE WITH MOD A. PT IS LETHARGIC AND REQUIRED EXTENSIVE CUES FOR INCREASED ATTENTION TO TASKS. PT IS COOPERATIVE. NURSING AWARE. [phone] JOSE DE JESUS MUSTAFA COTA
[2020-10-20 21:21] VITALS: BP 162/37
[2020-10-21 00:27] VITALS: BP 190/55
[2020-10-21 06:16] VITALS: BP 189/48
[2020-10-21 07:50] LABS: BASOPHILS 1.2 % (0-2); EOSINOPHILS 3.3 % (0-7); HEMATOCRIT 40.7 % (36.0-48.0); HEMOGLOBIN 13.8 g/dL (12-16); LYMPHOCYTES 36.6 % (15-50); MCH 30.8 pg (26.0-34.0); MCHC 33.9 g/dL (31.0-37.0); MCV 90.8 fL (80.0-100.0); MEAN PLATELET VOLUME 9.1 fL (7.4-10.4); MONOCYTES 10.4 % (2-11); NEUTROPHILS 48.5 % (40-80); PLATELET COUNT 169 10x3/uL (130-400); RBC 4.48 10x6/uL (4.00-5.40); RDW 14.6 % (11.5-14.5); WBC 5.1 10x3/uL (4.8-10.8)
[2020-10-21 08:03] LABS: ALBUMIN 2.8 g/dL (3.4-5.0); ANION GAP 13.6 mmol/L (8-16); BILIRUBIN - TOTAL 1.39 mg/dL (0.2-1.3); CALCIUM 8.3 mg/dL (8.5-10.1); CARBON DIOXIDE 23.2 mmol/L (21.0-32.0); CREATININE - SERUM 1.3 mg/dL (0.6-1.3); POTASSIUM - SERUM 3.8 mmol/L (3.5-5.1); PROTEIN - SERUM 5.8 g/dL (6.4-8.2)
[2020-10-21 08:10] VITALS: BP 154/45
--- NOTE | 2020-10-21 10:15 | NUR ---
SITTING UP IN CHAIR WITH PT ASSIST.
--- NOTE | 2020-10-21 11:13 | NUR ---
OT NOTE: BED MOB WITH MOD ASSIST; REQUIRED ASSIST X 2 FOR AMB IN ROOM WITH WALKER. PT VERY WEAK AND REQUIRES EXT ENOURAGEMENT. REQUIRED MAX ASSIST FOR SPONGE BATH; ABLE TO WASH FACE WITH CUES; UNABLE TO BRUSH HAIR WITHOUT ASSIST; MAX ASSIST TO INES SOCKS; MOD ASSIST TO INES GOWN; PT ONLY TOLERATED SITTING UP IN CHAIR FOR SHORT TIME.. VERY ANXIOUS.. DECREASED STM. DEANNA CASTILLO, OTR/L [id number]
[2020-10-21 11:40] VITALS: BP 127/40
[2020-10-21 12:31] LABS: BACTERIA MANY HPF (<MOD); BILIRUBIN NEGATIVE (NEGATIVE); KETONE TRACE mg/dL (< 1+); NITRITE NEGATIVE (NEGATIVE); PH 5.5 (5.0-8.0); SQUAMOUS EPITHELIAL 3 HPF (0-4); UROBILINOGEN NORMAL mg/dL (< 2); WHITE CELLS - URINE 53 HPF (0-4)
--- NOTE | 2020-10-21 15:30 | MORECARE ---
CASE MANAGEMENT DISCHARGE SUMMARY PATIENT: SHERI SORIA UNIT: [id number] ADM DATE: 10/12/20 AGE: 84 : 36 SEX: F ROOM/BED: D.8976 AUTHOR: YAZMIN,DOC PHYSICIAN: REFERRING PHYSICIAN: BAR TRIVEDI MD DATE OF SERVICE: 10/21/20 Case Management Discharge Planning Summary COMMENTS ENTERED DATE: 10/21/20 15:21 CT COMMENT TYPE: Discharge Planning REVIEWER: Susi Екатерина Yaakov called and states he would like referral to [facility] and if they cannot accept [facility]. I sent referral to [facility] and spoke with Susi. ENTERED DATE: 10/20/20 11:58 CT COMMENT TYPE: Discharge Planning REVIEWER: Susi Willams called patient's spouse and he states patient has not have the Covid vaccine. I informed spouse that [facility] will not accept her since she has not had the vaccine and asked for a second choice. Spouse tells me to call Yaakov or their son, Larry for a second choice for rehab. I attempted to call Larry and did not receive an answer. Awaiting call back from Yaakov. ENTERED DATE: 10/20/20 11:03 CT COMMENT TYPE: Discharge Planning REVIEWER: Susi Екатерина Yaakov returned my call and states his grandmother has been at [facility] before for therapy and would like a referral sent there. I called and spoke with Arelis and she states patient would need to have had her Covid vaccine to come there. I called Nathaniel back and left a message on his answering machine. CM will continue to follow and assist with discharge planning/needs. ENTERED DATE: 10/20/20 10:16 CT COMMENT TYPE: Discharge Planning REVIEWER: Susi Willams CM went to patient's room and she is very lethargic and does not answer questions asked. Dr. Long and Scotty Pina present in the room. I called patient's grandson, Yaakov, and left a voice message to return my call concerning discharge planning. CM will continue to follow and assist with discharge planning/needs. ENTERED DATE: 10/19/20 21:19 CT COMMENT TYPE: Discharge Planning REVIEWER: Briseida Saha CM spoke with Shama with inpatient rehab. She stated that patient has been refusing therapy the patient has only had one session since 10/15. Patient may be more appropriate for SNF. Inpatient will continue to watch patient. CM attempted to speak with patient today to see if she would consider SNF for rehab. Patient was to hard to arouse and get an answer. CM will continue to follow and assist as needed with d/c planning / needs. ENTERED DATE: 10/19/20 21:16 CT COMMENT TYPE: Discharge Planning REVIEWER: Briseida Saha LATE ENTRY 10/17/20 CM spoke with patient since she stated that she keeps telling physicians that she is to week to go home. Patient was very drowsy when CM spoke with her but she stated that she now feels like she may need rehab before she goes home. ENTERED DATE: 10/15/20 16:23 CT COMMENT TYPE: Discharge Planning REVIEWER: Susi Willams CM met with patient to discuss discharge planning/needs. Patient states she lives in a single story home with her spouse. States she has no steps to enter the home. States she has a personal healthcare social worker named Sheri that comes to her home Monday through Monday every day and assist with meal preparation, bathing and dressing. States her does her medication management. States she has a 2 wheeled walker, but typically is in her wheelchair in the home. She has a PCP in [place], but states she cannot remember his name. I informed her of the availability of rehab, home health and additional DME, she declines needs. States "I'm going home." States her grandson will transport her. CM will continue to follow and assist with discharge planning/needs. DCP REVIEW SUMMARY ANTICIPATED D/C DATE: 10/15/2020 EXPECTED LOS : 3 CASE STATUS: DCP Initiated INITIAL REVIEW: 10/15/2020 INITIAL REVIEWER: Susi Willams FINAL DISCHARGE DISPOSITION: : FINAL REVIEWER: FINAL REVIEW DATE: DCP Focus Questions & Answers DCP Evaluation QUESTION: ANSWER Patient and/or caregiver agree upon recommended discharge plan? : Yes Patient's current cognitive status: : *Oriented to person, place, situation, time and present Patient's ability to cope with chronic illness : d. No chronic illness Patient gives permission to discuss discharge plans with: (name, relationship and number) : Yaakov Soria - [phone] Does the patient have the ability to pay for or attain post discharge needs / services? : Yes Physical Status: : Partial care dependence Physical Status: : Mobility impaired Equipment needed for post hospitalization: : None Is there a likelihood that the patient will require additional services to return to the preadmission environment? : No Living Arrangements: : Home with Spouse/Significant Other Partial Dependence, assistance required for: : Dressing Partial Dependence, assistance required for: : Bathing Partial Dependence, assistance required for: : Ambulation / Mobility Results of this evaluation have been discussed with: : Patient Living arrangements comments: : Florentino Soria Baseline cognitive status: : Alert Baseline cognitive status: : *Oriented to person, place, situation, time and present Pharmacy name(s): : [facility] Does Patient have transportation to get home and to follow-up medical appointments when discharged from the hospital? : Yes Would patient like to participate in any Care Coordination programs (if applicable): : Not applicable Comments: : States her grandsonYaakov will transport her home Does the patient have electricity at home? : Yes Equipment in use: : Wheelchair Equipment in use: : Walker - Rolling Equipment in use: : Shower Chair Equipment in use: : Other Equipment in use: : Cane - Single Leg Other Equipment comments: : Grab bars in shower Mental health screen: : No mental health history Psychosocial status: : Adult with physical limitations Abuse/Neglect: : None Resources / Services in place: : Private duty care Resources / Services in place: : Medication assistance Contact information for resources in use: : Sheri - does not know the name of the agency DCP Re-evaluation QUESTION: ANSWER Would patient like to participate in any Care Coordination programs (if applicable): : Not applicable PATIENT: SHERI SORIA ENCOUNTER: [id number] MEDICAL RECORD#: [id number] ADMISSION DATE: 10/12/2020 DISCHARGE DATE: ATTENDING MD: BAR REYES : AGE: 84 MARITAL STATUS: M DC PLAN ID: [id number] FACILITY: [facility] PRINTED ON: 10/21/20 15:30 CT All edits/amendments must be made on the electronic document DICTATION DATE: 10/21/201529 HOME CARE PROVIDER: KLAUDIA 10/21/201529 RPT#: [id number] DC DATE: STATUS: ADM IN [facility] [address] [place] [address] END OF REPORT
[2020-10-21 16:12] VITALS: BP 133/39
--- NOTE | 2020-10-21 16:24 | NUR ---
OT NOTE: PT COMPLETED BED MOB WITH MOD-MAX A. PT COMPLETED ADL MOB USING RW WITH MOD A. PT COMPLETED HYGIENE TASKS AT EOB WITH MOD A. [phone]
--- NOTE | 2020-10-21 19:30 | NUR ---
PT IN BED, EYES CLOSED, RESP EVEN AND UNLABORED, NO DISTRESS NOTED, CL IN REACH, SR UP X 2.
[2020-10-21 20:00] VITALS: BP 116/80
[2020-10-22] VITALS: BP 145/39
--- NOTE | 2020-10-22 02:21 | NUR ---
I have reviewed this patient and I concur with the Shift Assessment completed by the Licensed Practical Nurse today this shift.
[2020-10-22 04:00] VITALS: BP 166/35
[2020-10-22 06:09] LABS: EOSINOPHILS 1.7 % (0-7); HEMATOCRIT 37.8 % (36.0-48.0); HEMOGLOBIN 12.7 g/dL (12-16); LYMPHOCYTES 37.8 % (15-50); MCH 30.3 pg (26.0-34.0); MCHC 33.4 g/dL (31.0-37.0); MCV 90.6 fL (80.0-100.0); MEAN PLATELET VOLUME 9.1 fL (7.4-10.4); MONOCYTES 9.4 % (2-11); NEUTROPHILS 50.1 % (40-80); RBC 4.18 10x6/uL (4.00-5.40); RDW 14.3 % (11.5-14.5); WBC 4.2 10x3/uL (4.8-10.8)
[2020-10-22 06:24] LABS: PLATELET COUNT 135 10x3/uL (130-400)
[2020-10-22 06:27] LABS: ALBUMIN 2.8 g/dL (3.4-5.0); BILIRUBIN - TOTAL 1.16 mg/dL (0.2-1.3); CALCIUM 8.5 mg/dL (8.5-10.1); CARBON DIOXIDE 24.9 mmol/L (21.0-32.0); CREATININE - SERUM 1.6 mg/dL (0.6-1.3); POTASSIUM - SERUM 3.9 mmol/L (3.5-5.1); PROTEIN - SERUM 5.6 g/dL (6.4-8.2)
[2020-10-22 07:51] VITALS: BP 170/42
--- NOTE | 2020-10-22 08:30 | NUR ---
PT UP TO CHAIR WITH TRANSFER ASSIST, STUDENT IN ROOM HELPING WITH BREAKFAST.
--- NOTE | 2020-10-22 09:45 | NUR ---
THERAPY IN ROOM AMBULATING PT AND PUTTING BACK TO BED.
--- NOTE | 2020-10-22 10:47 | NUR ---
UNABLE TO OBTAIN IV ACCESS, EVEN FROM PICC/MIDLINE NURSE WITH ULTRASOUND. PT NOT COOPERATIVE DUE TO DISCOMFORT. WILL CONT WITH IM ANTIBIOTICS AND PUSH ORAL FLUIDS FOR BUN/CR BUMP OVERNIGHT.
[2020-10-22 11:41] VITALS: BP 137/41
--- NOTE | 2020-10-22 12:09 | NUR ---
Nutrition Follow-up: Pt confused. Nursing reports pt ate some breakfast this AM with assistance. Does not like Ensure. Diet: Regular, Ensure TID No new wt; last wt: 130# (10/13) Labs noted: BUN 34, Cre 1.6, GFR 33, Glu 126, Alb 2.8 Meds noted: Florajen, Colace, Protonix, electroyte protocol -Encourage PO intake and honor food preferences. -D/c Ensure per pt preference. -Magic Cup sent with lunch today for pt trial; discussed with nursing. -Need new wt; daily wts ordered. -RD will follow up within 4-5 days.
--- NOTE | 2020-10-22 14:35 | NUR ---
OT NOTE: PT COMPLETED BUE AROM WITH FUNCTIONAL TASKS. PT COMPLETED SIT TO STAND WITH MOD-MAX A. PT COMPLETED FACE HYGIENE WITH MIN A AND VERBAL CUES FOR INCREASED TASK COMPLETION. [phone] THANK YOU,EMY KAHN
[2020-10-22 16:08] VITALS: BP 142/44
--- NOTE | 2020-10-22 19:30 | NUR ---
PT IN BED, EYES CLOSED, RESP EVEN AND UNLABORED, NO DISTRESS NOTED, CL IN REACH, SR UP X 2.
--- NOTE | 2020-10-22 20:17 | MORECARE ---
CASE MANAGEMENT DISCHARGE SUMMARY PATIENT: SHERI SORIA UNIT: [id number] ADM DATE: 10/12/20 AGE: 84 : 36 SEX: F ROOM/BED: D.9458 AUTHOR: YAZMIN,DOC PHYSICIAN: REFERRING PHYSICIAN: BAR TRIVEDI MD DATE OF SERVICE: 10/22/20 Case Management Discharge Planning Summary COMMENTS ENTERED DATE: 10/21/20 15:21 CT COMMENT TYPE: Discharge Planning REVIEWER: Susi Екатерина Yaakov called and states he would like referral to [facility] and if they cannot accept [facility]. I sent referral to [facility] and spoke with Susi. ENTERED DATE: 10/20/20 11:58 CT COMMENT TYPE: Discharge Planning REVIEWER: Susi Willams called patient's spouse and he states patient has not have the Covid vaccine. I informed spouse that [facility] will not accept her since she has not had the vaccine and asked for a second choice. Spouse tells me to call Yaakov or their son, Larry for a second choice for rehab. I attempted to call Larry and did not receive an answer. Awaiting call back from Yaakov. ENTERED DATE: 10/20/20 11:03 CT COMMENT TYPE: Discharge Planning REVIEWER: Susi Екатерина Yaakov returned my call and states his grandmother has been at [facility] before for therapy and would like a referral sent there. I called and spoke with Arelis and she states patient would need to have had her Covid vaccine to come there. I called Nathaniel back and left a message on his answering machine. CM will continue to follow and assist with discharge planning/needs. ENTERED DATE: 10/20/20 10:16 CT COMMENT TYPE: Discharge Planning REVIEWER: Susi Willams CM went to patient's room and she is very lethargic and does not answer questions asked. Dr. Long and Scotty Pina present in the room. I called patient's grandson, Yaakov, and left a voice message to return my call concerning discharge planning. CM will continue to follow and assist with discharge planning/needs. ENTERED DATE: 10/19/20 21:19 CT COMMENT TYPE: Discharge Planning REVIEWER: Briseida Saha CM spoke with Shama with inpatient rehab. She stated that patient has been refusing therapy the patient has only had one session since 10/15. Patient may be more appropriate for SNF. Inpatient will continue to watch patient. CM attempted to speak with patient today to see if she would consider SNF for rehab. Patient was to hard to arouse and get an answer. CM will continue to follow and assist as needed with d/c planning / needs. ENTERED DATE: 10/19/20 21:16 CT COMMENT TYPE: Discharge Planning REVIEWER: Briseida Saha LATE ENTRY 10/17/20 CM spoke with patient since she stated that she keeps telling physicians that she is to week to go home. Patient was very drowsy when CM spoke with her but she stated that she now feels like she may need rehab before she goes home. ENTERED DATE: 10/15/20 16:23 CT COMMENT TYPE: Discharge Planning REVIEWER: Susi Willams CM met with patient to discuss discharge planning/needs. Patient states she lives in a single story home with her spouse. States she has no steps to enter the home. States she has a personal weekend caregiver named Sheri that comes to her home Monday through Monday every day and assist with meal preparation, bathing and dressing. States her does her medication management. States she has a 2 wheeled walker, but typically is in her wheelchair in the home. She has a PCP in [place], but states she cannot remember his name. I informed her of the availability of rehab, home health and additional DME, she declines needs. States "I'm going home." States her grandson will transport her. CM will continue to follow and assist with discharge planning/needs. DCP REVIEW SUMMARY ANTICIPATED D/C DATE: 10/15/2020 EXPECTED LOS : 3 CASE STATUS: DCP Initiated INITIAL REVIEW: 10/15/2020 INITIAL REVIEWER: Susi Willams FINAL DISCHARGE DISPOSITION: : FINAL REVIEWER: FINAL REVIEW DATE: DCP Focus Questions & Answers DCP Evaluation QUESTION: ANSWER Patient and/or caregiver agree upon recommended discharge plan? : Yes Patient's current cognitive status: : *Oriented to person, place, situation, time and present Patient's ability to cope with chronic illness : d. No chronic illness Patient gives permission to discuss discharge plans with: (name, relationship and number) : Yaakov Soria - [phone] Does the patient have the ability to pay for or attain post discharge needs / services? : Yes Physical Status: : Partial care dependence Physical Status: : Mobility impaired Equipment needed for post hospitalization: : None Is there a likelihood that the patient will require additional services to return to the preadmission environment? : No Living Arrangements: : Home with Spouse/Significant Other Partial Dependence, assistance required for: : Dressing Partial Dependence, assistance required for: : Bathing Partial Dependence, assistance required for: : Ambulation / Mobility Results of this evaluation have been discussed with: : Patient Living arrangements comments: : Florentino Soria Baseline cognitive status: : Alert Baseline cognitive status: : *Oriented to person, place, situation, time and present Pharmacy name(s): : [facility] Does Patient have transportation to get home and to follow-up medical appointments when discharged from the hospital? : Yes Would patient like to participate in any Care Coordination programs (if applicable): : Not applicable Comments: : States her grandsonYaakov will transport her home Does the patient have electricity at home? : Yes Equipment in use: : Wheelchair Equipment in use: : Walker - Rolling Equipment in use: : Shower Chair Equipment in use: : Other Equipment in use: : Cane - Single Leg Other Equipment comments: : Grab bars in shower Mental health screen: : No mental health history Psychosocial status: : Adult with physical limitations Abuse/Neglect: : None Resources / Services in place: : Private duty care Resources / Services in place: : Medication assistance Contact information for resources in use: : Sheri - does not know the name of the agency DCP Re-evaluation QUESTION: ANSWER Would patient like to participate in any Care Coordination programs (if applicable): : Not applicable PATIENT: SHERI SORIA ENCOUNTER: [id number] MEDICAL RECORD#: [id number] ADMISSION DATE: 10/12/2020 DISCHARGE DATE: ATTENDING MD: BAR REYES : AGE: 84 MARITAL STATUS: M DC PLAN ID: [id number] FACILITY: [facility] PRINTED ON: 10/22/20 20:17 CT All edits/amendments must be made on the electronic document DICTATION DATE: 10/22/202016 LARD REFINER: KLAUDIA 10/22/20 2017 RPT#: [id number] DC DATE: STATUS: ADM IN [facility] [address] [place] [address] END OF REPORT
[2020-10-22 20:22] VITALS: BP 153/96
--- NOTE | 2020-10-22 20:28 | MORECARE ---
CASE MANAGEMENT DISCHARGE SUMMARY PATIENT: SHERI SORIA UNIT: [id number] ADM DATE: 10/12/20 AGE: 84 : 36 SEX: F ROOM/BED: D.7307 AUTHOR: YAZMIN,DOC PHYSICIAN: REFERRING PHYSICIAN: BAR TRIVEDI MD DATE OF SERVICE: 10/22/20 Case Management Discharge Planning Summary COMMENTS ENTERED DATE: 10/22/20 20:13 CT COMMENT TYPE: Discharge Planning REVIEWER: Briseida Saha CM received a call from [facility] stating that they only had one concern and that was if she has been seen by psych in the past for her anxiety. CM went and spoke with patient and she stated that she didn't think so, but then went on to ask what was going on. CM reassured her that we was trying to get her some rehab so she would be strong enough to go back home. CM wasn't able to call [facility] back d/t it being after 1630. Will follow up with [facility] in am. May need to contact Yaakov neves [phone] or her son Larry [phone] for this information. ENTERED DATE: 10/21/20 15:21 CT COMMENT TYPE: Discharge Planning REVIEWER: Susi Nuno called and states he would like referral to [facility] and if they cannot accept [facility]. I sent referral to [facility] and spoke with Susi. ENTERED DATE: 10/20/20 11:58 CT COMMENT TYPE: Discharge Planning REVIEWER: Susi Willams CM called patient's spouse and he states patient has not have the Covid vaccine. I informed spouse that [facility] will not accept her since she has not had the vaccine and asked for a second choice. Spouse tells me to call Yaakov or their son, Larry for a second choice for rehab. I attempted to call Larry and did not receive an answer. Awaiting call back from Yaakov. ENTERED DATE: 10/20/20 11:03 CT COMMENT TYPE: Discharge Planning REVIEWER: Susi Nuno returned my call and states his grandmother has been at [facility] before for therapy and would like a referral sent there. I called and spoke with Arelis and she states patient would need to have had her Covid vaccine to come there. I called Nathaniel back and left a message on his answering machine. CM will continue to follow and assist with discharge planning/needs. ENTERED DATE: 10/20/20 10:16 CT COMMENT TYPE: Discharge Planning REVIEWER: Susi Willams CM went to patient's room and she is very lethargic and does not answer questions asked. Dr. Long and Scotty Pina present in the room. I called patient's grandson, Yaakov, and left a voice message to return my call concerning discharge planning. CM will continue to follow and assist with discharge planning/needs. ENTERED DATE: 10/19/20 21:19 CT COMMENT TYPE: Discharge Planning REVIEWER: Briseida Saha CM spoke with Shama with inpatient rehab. She stated that patient has been refusing therapy the patient has only had one session since 10/15. Patient may be more appropriate for SNF. Inpatient will continue to watch patient. CM attempted to speak with patient today to see if she would consider SNF for rehab. Patient was to hard to arouse and get an answer. CM will continue to follow and assist as needed with d/c planning / needs. ENTERED DATE: 10/19/20 21:16 CT COMMENT TYPE: Discharge Planning REVIEWER: Briseida Saha LATE ENTRY 10/17/20 CM spoke with patient since she stated that she keeps telling physicians that she is to week to go home. Patient was very drowsy when CM spoke with her but she stated that she now feels like she may need rehab before she goes home. ENTERED DATE: 10/15/20 16:23 CT COMMENT TYPE: Discharge Planning REVIEWER: Susi Willams CM met with patient to discuss discharge planning/needs. Patient states she lives in a single story home with her spouse. States she has no steps to enter the home. States she has a personal adult daycare coordinator named Sheri that comes to her home Monday through Monday every day and assist with meal preparation, bathing and dressing. States her does her medication management. States she has a 2 wheeled walker, but typically is in her wheelchair in the home. She has a PCP in [place], but states she cannot remember his name. I informed her of the availability of rehab, home health and additional DME, she declines needs. States "I'm going home." States her grandson will transport her. CM will continue to follow and assist with discharge planning/needs. VAP REVIEW SUMMARY ANTICIPATED D/C DATE: 10/15/2020 EXPECTED LOS : 3 CASE STATUS: DCP Initiated INITIAL REVIEW: 10/15/2020 INITIAL REVIEWER: Susi Willams FINAL DISCHARGE DISPOSITION: : FINAL REVIEWER: FINAL REVIEW DATE: VAP Focus Questions & Answers DCP Evaluation QUESTION: ANSWER Patient and/or caregiver agree upon recommended discharge plan? : Yes Patient's current cognitive status: : *Oriented to person, place, situation, time and present Patient's ability to cope with chronic illness : d. No chronic illness Patient gives permission to discuss discharge plans with: (name, relationship and number) : Yaakov Soria - [phone] Does the patient have the ability to pay for or attain post discharge needs / services? : Yes Physical Status: : Partial care dependence Physical Status: : Mobility impaired Equipment needed for post hospitalization: : None Is there a likelihood that the patient will require additional services to return to the preadmission environment? : No Living Arrangements: : Home with Spouse/Significant Other Partial Dependence, assistance required for: : Dressing Partial Dependence, assistance required for: : Bathing Partial Dependence, assistance required for: : Ambulation / Mobility Results of this evaluation have been discussed with: : Patient Living arrangements comments: : Florentino Soria Baseline cognitive status: : Alert Baseline cognitive status: : *Oriented to person, place, situation, time and present [facility] Does Patient have transportation to get home and to follow-up medical appointments when discharged from the hospital? : Yes Would patient like to participate in any Care Coordination programs (if applicable): : Not applicable Comments: : States her grandson, Yaakov will transport her home Does the patient have electricity at home? : Yes Equipment in use: : Wheelchair Equipment in use: : Walker - Rolling Equipment in use: : Shower Chair Equipment in use: : Other Equipment in use: : Cane - Single Leg Other Equipment comments: : Grab bars in shower Mental health screen: : No mental health history Psychosocial status: : Adult with physical limitations Abuse/Neglect: : None Resources / Services in place: : Private duty care Resources / Services in place: : Medication assistance Contact information for resources in use: : Sheri - does not know the name of the agency DCP Re-evaluation QUESTION: ANSWER Would patient like to participate in any Care Coordination programs (if applicable): : Not applicable PATIENT: SHERI SORIA ENCOUNTER: [id number] MEDICAL RECORD#: [id number] ADMISSION DATE: 10/12/2020 DISCHARGE DATE: ATTENDING MD: BAR REYES : AGE: 84 MARITAL STATUS: M DC PLAN ID: [id number] FACILITY: [facility] PRINTED ON: 10/22/20 20:28 CT All edits/amendments must be made on the electronic document DICTATION DATE: 10/22/202027 FUEL CELL DESIGNER: KLAUDIA 10/22/202027 RPT#: [id number] DC DATE: STATUS: ADM IN [facility] [address] [place] [address] END OF REPORT
[2020-10-23 01:38] VITALS: BP 160/52
--- NOTE | 2020-10-23 06:19 | NUR ---
I have reviewed this patient and I concur with the Shift Assessment completed by the Licensed Practical Nurse today this shift.
[2020-10-23 06:37] VITALS: BP 185/73
[2020-10-23 07:06] LABS: ALBUMIN 2.8 g/dL (3.4-5.0); ANION GAP 14.4 mmol/L (8-16); BILIRUBIN - TOTAL 1.09 mg/dL (0.2-1.3); CALCIUM 8.2 mg/dL (8.5-10.1); CARBON DIOXIDE 22.9 mmol/L (21.0-32.0); POTASSIUM - SERUM 4.3 mmol/L (3.5-5.1); PROTEIN - SERUM 5.4 g/dL (6.4-8.2)
[2020-10-23 07:07] LABS: CREATININE - SERUM 1.1 mg/dL (0.6-1.3)
[2020-10-23 07:41] LABS: BASOPHILS 0.3 % (0-2); EOSINOPHILS 2.6 % (0-7); HEMOGLOBIN 12.9 g/dL (12-16); IMMATURE GRANULOCYTES 0.3 % (0-5); LYMPHOCYTE ABS# 1.32 10x3/uL (1.18-3.74); LYMPHOCYTES 33.7 % (15-50); MCH 30.9 pg (26.0-34.0); MCHC 34.9 g/dL (31.0-37.0); MEAN PLATELET VOLUME 11.4 fL (7.4-10.4); MONOCYTES 8.2 % (2-11); NEUTROPHIL ABS# 2.16 10x3/uL (1.56-6.13); NEUTROPHILS 54.9 % (40-80); PLATELET COUNT 148 10x3/uL (130-400); RBC 4.18 10x6/uL (4.00-5.40); RDW 14.2 % (11.5-14.5); WBC 3.9 10x3/uL (4.8-10.8)
[2020-10-23 07:42] LABS: MCV 88.5 fL (80.0-100.0)
--- NOTE | 2020-10-23 08:33 | NUR ---
I AM FOLLOWING UP ON REFERRAL RECEIVED WHILE I WAS IN TRAINING. WE HAD PREVIOUSLY LOOKED AT [facility], AND I DID NOT FIND THAT I PUT IN A NOTE (MY APOLOGIES). SHE CONTINUES TO REFUSE THERAPY, AND THEREFORE WOULD NOT MEET THE 3 HOURS OF THERAPY AT LEAST 5 DAYS A WEEK REQUIREMENT. WITH THE LAST REFERRAL, SHE TOLD ME SHE HAS "A GIRL WHO GIVES ME A BATH AND CLEANS MY HOUSE". SHE STATED SHE DID NOT SEE WHY WE WANTED TO WORK WITH HER SO THAT SHE COULD DO THESE THINGS. I ALSO UNDERSTAND THAT THE CAREGIVER IS ONLY THERE DURING THE DAY AND NOT AT NIGHT, WHICH MAKES DISCHARGING HOME NOT NECESSARILY SAFE. MY NEONATAL PEDIATRIC NURSE HAS STATED WE WOULD WATCH HER FOR PARTICIPATION WITH THERAPY AND A WANT TO COME TO [place] TO IMPROVE HER FUNCTIONAL ABILITIES. IF THIS WERE TO HAPPEN, SHE WOULD BE A GOOD CANDIDATE FOR INPATIENT REHAB. THEREFORE, WE WILL CONTINUE TO FOLLOW AND TRY TO HAVE ANOTHER CONVERSATION WITH HER ABOUT INPATIENT REHAB. THANKS FOR THIS REFERRAL JAYESH GREEN RN CLINICAL LIAISON, INPATIENT REHAB.
[2020-10-23] MEDS ORDERED: PLAVIX75 MG PO (11:44)
[2020-10-23] MEDS ORDERED: CARDURA2 MG PO (11:44)
[2020-10-23] MEDS ORDERED: NORVASC2.5 MG PO (11:45)
[2020-10-23] MEDS ORDERED: ENTRESTO 24 MG1 EACH PO (11:45)
[2020-10-23] MEDS ORDERED: LEVOFLOXACIN500 MG PO (11:46)
[2020-10-23 12:30] VITALS: BP 165/71
--- NOTE | 2020-10-23 13:49 | NUR ---
PT PICKED UP TO GO TO [facility]. REPORT CALLED TO BEVERLY BRANCH AT FACILITY.
--- NOTE | 2020-10-23 13:59 | MORECARE ---
CASE MANAGEMENT DISCHARGE SUMMARY PATIENT: SHERI SORIA UNIT: [id number] ADM DATE: 10/12/20 AGE: 84 : 36 SEX: F ROOM/BED: D.6836 AUTHOR: YAZMIN,DOC PHYSICIAN: REFERRING PHYSICIAN: BAR TRIVEDI MD DATE OF SERVICE: 10/23/20 Case Management Discharge Planning Summary COMMENTS ENTERED DATE: 10/22/20 20:13 CT COMMENT TYPE: Discharge Planning REVIEWER: Briseida Saha CM received a call from [facility] stating that they only had one concern and that was if she has been seen by psych in the past for her anxiety. CM went and spoke with patient and she stated that she didn't think so, but then went on to ask what was going on. CM reassured her that we was trying to get her some rehab so she would be strong enough to go back home. CM wasn't able to call [facility] back d/t it being after 1630. Will follow up with [facility] in am. May need to contact Yaakov neves [phone] or her son Larry [phone] for this information. ENTERED DATE: 10/21/20 15:21 CT COMMENT TYPE: Discharge Planning REVIEWER: Susi Nuno called and states he would like referral to [facility] and if they cannot accept [facility]. I sent referral to [facility] and spoke with Susi. ENTERED DATE: 10/20/20 11:58 CT COMMENT TYPE: Discharge Planning REVIEWER: Susi Willams CM called patient's spouse and he states patient has not have the Covid vaccine. I informed spouse that [facility] will not accept her since she has not had the vaccine and asked for a second choice. Spouse tells me to call Yaakov or their son, Larry for a second choice for rehab. I attempted to call Larry and did not receive an answer. Awaiting call back from Yaakov. ENTERED DATE: 10/20/20 11:03 CT COMMENT TYPE: Discharge Planning REVIEWER: Susi Nuno returned my call and states his grandmother has been at [facility] before for therapy and would like a referral sent there. I called and spoke with Arelis and she states patient would need to have had her Covid vaccine to come there. I called Nathaniel back and left a message on his answering machine. CM will continue to follow and assist with discharge planning/needs. ENTERED DATE: 10/20/20 10:16 CT COMMENT TYPE: Discharge Planning REVIEWER: Susi Willams CM went to patient's room and she is very lethargic and does not answer questions asked. Dr. Long and Scotty Pina present in the room. I called patient's grandson, Yaakov, and left a voice message to return my call concerning discharge planning. CM will continue to follow and assist with discharge planning/needs. ENTERED DATE: 10/19/20 21:19 CT COMMENT TYPE: Discharge Planning REVIEWER: Briseida Saha CM spoke with Shama with inpatient rehab. She stated that patient has been refusing therapy the patient has only had one session since 10/15. Patient may be more appropriate for SNF. Inpatient will continue to watch patient. CM attempted to speak with patient today to see if she would consider SNF for rehab. Patient was to hard to arouse and get an answer. CM will continue to follow and assist as needed with d/c planning / needs. ENTERED DATE: 10/19/20 21:16 CT COMMENT TYPE: Discharge Planning REVIEWER: Briseida Saha LATE ENTRY 10/17/20 CM spoke with patient since she stated that she keeps telling physicians that she is to week to go home. Patient was very drowsy when CM spoke with her but she stated that she now feels like she may need rehab before she goes home. ENTERED DATE: 10/15/20 16:23 CT COMMENT TYPE: Discharge Planning REVIEWER: Susi Willams CM met with patient to discuss discharge planning/needs. Patient states she lives in a single story home with her spouse. States she has no steps to enter the home. States she has a personal care coordination manager named Sheri that comes to her home Monday through Monday every day and assist with meal preparation, bathing and dressing. States her does her medication management. States she has a 2 wheeled walker, but typically is in her wheelchair in the home. She has a PCP in [place], but states she cannot remember his name. I informed her of the availability of rehab, home health and additional DME, she declines needs. States "I'm going home." States her grandson will transport her. CM will continue to follow and assist with discharge planning/needs. OKP REVIEW SUMMARY ANTICIPATED D/C DATE: 10/15/2020 EXPECTED LOS : 3 CASE STATUS: DCP Initiated INITIAL REVIEW: 10/15/2020 INITIAL REVIEWER: Susi Willams FINAL DISCHARGE DISPOSITION: : FINAL REVIEWER: FINAL REVIEW DATE: OKP Focus Questions & Answers DCP Evaluation QUESTION: ANSWER Patient and/or caregiver agree upon recommended discharge plan? : Yes Patient's current cognitive status: : *Oriented to person, place, situation, time and present Patient's ability to cope with chronic illness : d. No chronic illness Patient gives permission to discuss discharge plans with: (name, relationship and number) : Yaakov Soria - [phone] Does the patient have the ability to pay for or attain post discharge needs / services? : Yes Physical Status: : Partial care dependence Physical Status: : Mobility impaired Equipment needed for post hospitalization: : None Is there a likelihood that the patient will require additional services to return to the preadmission environment? : No Living Arrangements: : Home with Spouse/Significant Other Partial Dependence, assistance required for: : Dressing Partial Dependence, assistance required for: : Bathing Partial Dependence, assistance required for: : Ambulation / Mobility Results of this evaluation have been discussed with: : Patient Living arrangements comments: : Florentino Soria Baseline cognitive status: : Alert Baseline cognitive status: : *Oriented to person, place, situation, time and present [facility] Does Patient have transportation to get home and to follow-up medical appointments when discharged from the hospital? : Yes Would patient like to participate in any Care Coordination programs (if applicable): : Not applicable Comments: : States her grandson, Yaakov will transport her home Does the patient have electricity at home? : Yes Equipment in use: : Wheelchair Equipment in use: : Walker - Rolling Equipment in use: : Shower Chair Equipment in use: : Other Equipment in use: : Cane - Single Leg Other Equipment comments: : Grab bars in shower Mental health screen: : No mental health history Psychosocial status: : Adult with physical limitations Abuse/Neglect: : None Resources / Services in place: : Private duty care Resources / Services in place: : Medication assistance Contact information for resources in use: : Sheri - does not know the name of the agency DCP Re-evaluation QUESTION: ANSWER Would patient like to participate in any Care Coordination programs (if applicable): : Not applicable PATIENT: SHERI SORIA ENCOUNTER: [id number] MEDICAL RECORD#: [id number] ADMISSION DATE: 10/12/2020 DISCHARGE DATE: 10/23/2020 ATTENDING MD: BAR REYES : AGE: 84 MARITAL STATUS: M DC PLAN ID: [id number] FACILITY: [facility] PRINTED ON: 10/23/20 13:59 CT All edits/amendments must be made on the electronic document DICTATION DATE: 10/23/20 5836 LOCK TENDER: KLAUDIA 10/23/20 1359 RPT#: [id number] DC DATE:10/23/20 STATUS: DIS IN [facility] [address] [place] [address] END OF REPORT
--- NOTE | 2020-10-23 14:54 | NUR ---
OT NOTE: PT COMPLETED BED MOBILITY WITH MOD A FOR SIDE ROLLING. PT COMPLETED BRIDGING WITH MIN A. PT COMPLETED SIT TO SUPINE WITH MAX A. PT COMPLETED LB HYGIENE WITH MAX-TOTAL A. [id number] JOSE DE JESUS MUSTAFA C[facility]
--- NOTE | 2020-10-23 16:21 | MORECARE ---
CASE MANAGEMENT DISCHARGE SUMMARY PATIENT: SHERI SORIA UNIT: [id number] ADM DATE: 10/12/20 AGE: 84 : 36 SEX: F ROOM/BED: D.0597 AUTHOR: YAZMIN,DOC PHYSICIAN: REFERRING PHYSICIAN: BAR TRIVEDI MD DATE OF SERVICE: 10/23/20 Case Management Discharge Planning Summary COMMENTS ENTERED DATE: 10/23/20 16:15 CT COMMENT TYPE: Discharge Planning REVIEWER: Mayra Espinal Pt transferred to [facility] today. ENTERED DATE: 10/22/20 20:13 CT COMMENT TYPE: Discharge Planning REVIEWER: Briseida Saha CM received a call from [facility] stating that they only had one concern and that was if she has been seen by psych in the past for her anxiety. TANK went and spoke with patient and she stated that she didn't think so, but then went on to ask what was going on. TANK reassured her that we was trying to get her some rehab so she would be strong enough to go back home. TANK wasn't able to call [facility] back d/t it being after 1630. Will follow up with [facility] in am. May need to contact Yaakov neves [phone] or her son Larry [phone] for this information. ENTERED DATE: 10/21/20 15:21 CT COMMENT TYPE: Discharge Planning REVIEWER: Susi Nuno called and states he would like referral to [facility] and if they cannot accept [facility]. I sent referral to [facility] and spoke with Susi. ENTERED DATE: 10/20/20 11:58 CT COMMENT TYPE: Discharge Planning REVIEWER: Susi Willams TANK called patient's spouse and he states patient has not have the Covid vaccine. I informed spouse that [facility] will not accept her since she has not had the vaccine and asked for a second choice. Spouse tells me to call Yaakov or their son, Larry for a second choice for rehab. I attempted to call Larry and did not receive an answer. Awaiting call back from [place]. ENTERED DATE: 10/20/20 11:03 CT COMMENT TYPE: Discharge Planning REVIEWER: Susi Nuno returned my call and states his grandmother has been at [facility] before for therapy and would like a referral sent there. I called and spoke with Arelis and she states patient would need to have had her Covid vaccine to come there. I called Nathaniel back and left a message on his answering machine. CM will continue to follow and assist with discharge planning/needs. ENTERED DATE: 10/20/20 10:16 CT COMMENT TYPE: Discharge Planning REVIEWER: Susi Merinomarah FU went to patient's room and she is very lethargic and does not answer questions asked. Dr. Long and Scotty Pina present in the room. I called patient's grandson, Yaakov, and left a voice message to return my call concerning discharge planning. CM will continue to follow and assist with discharge planning/needs. ENTERED DATE: 10/19/20 21:19 CT COMMENT TYPE: Discharge Planning REVIEWER: Briseida Saha CM spoke with Shama with inpatient rehab. She stated that patient has been refusing therapy the patient has only had one session since 10/15. Patient may be more appropriate for SNF. Inpatient will continue to watch patient. CM attempted to speak with patient today to see if she would consider SNF for rehab. Patient was to hard to arouse and get an answer. CM will continue to follow and assist as needed with d/c planning / needs. ENTERED DATE: 10/19/20 21:16 CT COMMENT TYPE: Discharge Planning REVIEWER: Briseida Saha LATE ENTRY 10/17/20 CM spoke with patient since she stated that she keeps telling physicians that she is to week to go home. Patient was very drowsy when CM spoke with her but she stated that she now feels like she may need rehab before she goes home. ENTERED DATE: 10/15/20 16:23 CT COMMENT TYPE: Discharge Planning REVIEWER: Susi Willams CM met with patient to discuss discharge planning/needs. Patient states she lives in a single story home with her spouse. States she has no steps to enter the home. States she has a personal home care rn named Sheri that comes to her home Monday through Monday every day and assist with meal preparation, bathing and dressing. States her does her medication management. States she has a 2 wheeled walker, but typically is in her wheelchair in the home. She has a PCP in [place], but states she cannot remember his name. I informed her of the availability of rehab, home health and additional DME, she declines needs. States "I'm going home." States her grandson will transport her. CM will continue to follow and assist with discharge planning/needs. MSP REVIEW SUMMARY ANTICIPATED D/C DATE: 10/15/2020 EXPECTED LOS : 3 CASE STATUS: DCP Initiated INITIAL REVIEW: 10/15/2020 INITIAL REVIEWER: Susi Willams FINAL DISCHARGE DISPOSITION: : FINAL REVIEWER: FINAL REVIEW DATE: [facility] Focus Questions & Answers [facility] Evaluation QUESTION: ANSWER Patient and/or caregiver agree upon recommended discharge plan? : Yes Patient's current cognitive status: : *Oriented to person, place, situation, time and present Patient's ability to cope with chronic illness : d. No chronic illness Patient gives permission to discuss discharge plans with: (name, relationship and number) : Yaakov Soria - [phone] Does the patient have the ability to pay for or attain post discharge needs / services? : Yes Physical Status: : Partial care dependence Physical Status: : Mobility impaired Equipment needed for post hospitalization: : None Is there a likelihood that the patient will require additional services to return to the preadmission environment? : No Living Arrangements: : Home with Spouse/Significant Other Partial Dependence, assistance required for: : Dressing Partial Dependence, assistance required for: : Bathing Partial Dependence, assistance required for: : Ambulation / Mobility Results of this evaluation have been discussed with: : Patient Living arrangements comments: : Florentino Soria Baseline cognitive status: : Alert Baseline cognitive status: : *Oriented to person, place, situation, time and present [facility] Does Patient have transportation to get home and to follow-up medical appointments when discharged from the hospital? : Yes Would patient like to participate in any Care Coordination programs (if applicable): : Not applicable Comments: : States her grandson, Yaakov will transport her home Does the patient have electricity at home? : Yes Equipment in use: : Wheelchair Equipment in use: : Walker - Rolling Equipment in use: : Shower Chair Equipment in use: : Other Equipment in use: : Cane - Single Leg Other Equipment comments: : Grab bars in shower Mental health screen: : No mental health history Psychosocial status: : Adult with physical limitations Abuse/Neglect: : None Resources / Services in place: : Private duty care Resources / Services in place: : Medication assistance Contact information for resources in use: : Sheri - does not know the name of the agency [facility] Re-evaluation QUESTION: ANSWER Would patient like to participate in any Care Coordination programs (if applicable): : Not applicable PATIENT: SHERI SORIA ENCOUNTER: [id number] MEDICAL RECORD#: [id number] ADMISSION DATE: 10/12/2020 DISCHARGE DATE: 10/23/2020 ATTENDING MD: BAR REYES : AGE: 84 MARITAL STATUS: M DC PLAN ID: [id number] FACILITY: [facility] PRINTED ON: 10/23/20 16:21 CT All edits/amendments must be made on the electronic document DICTATION DATE: 10/23/201620 BOOK COVERER: KLAUDIA 10/23/201620 RPT#: [id number] DC DATE:10/23/20 STATUS: DIS IN [facility] [address] [place] [address] END OF REPORT
--- NOTE | 2020-10-26 14:30 | MORECARE ---
CASE MANAGEMENT DISCHARGE SUMMARY PATIENT: SHERI SORIA UNIT: [id number] ADM DATE: 10/12/20 AGE: 84 : 36 SEX: F ROOM/BED: D.8661 AUTHOR: YAZMIN,DOC PHYSICIAN: REFERRING PHYSICIAN: BAR TRIVEDI MD DATE OF SERVICE: 10/26/20 Case Management Discharge Planning Summary COMMENTS ENTERED DATE: 10/23/20 16:15 CT COMMENT TYPE: Discharge Planning REVIEWER: Mayra Espinal Pt transferred to [facility] today. ENTERED DATE: 10/22/20 20:13 CT COMMENT TYPE: Discharge Planning REVIEWER: Briseida Saha CM received a call from [facility] stating that they only had one concern and that was if she has been seen by psych in the past for her anxiety. TANK went and spoke with patient and she stated that she didn't think so, but then went on to ask what was going on. TANK reassured her that we was trying to get her some rehab so she would be strong enough to go back home. TANK wasn't able to call [facility] back d/t it being after 1630. Will follow up with [facility] in am. May need to contact Yaakov neves [phone] or her son Larry [phone] for this information. ENTERED DATE: 10/21/20 15:21 CT COMMENT TYPE: Discharge Planning REVIEWER: Susi Nuno called and states he would like referral to [facility] and if they cannot accept [facility]. I sent referral to [facility] and spoke with Susi. ENTERED DATE: 10/20/20 11:58 CT COMMENT TYPE: Discharge Planning REVIEWER: Susi Willams TANK called patient's spouse and he states patient has not have the Covid vaccine. I informed spouse that [facility] will not accept her since she has not had the vaccine and asked for a second choice. Spouse tells me to call Yaakov or their son, Larry for a second choice for rehab. I attempted to call Larry and did not receive an answer. Awaiting call back from [facility]. ENTERED DATE: 10/20/20 11:03 CT COMMENT TYPE: Discharge Planning REVIEWER: Susi Nuno returned my call and states his grandmother has been at [facility] before for therapy and would like a referral sent there. I called and spoke with Arelis and she states patient would need to have had her Covid vaccine to come there. I called Nathaniel back and left a message on his answering machine. CM will continue to follow and assist with discharge planning/needs. ENTERED DATE: 10/20/20 10:16 CT COMMENT TYPE: Discharge Planning REVIEWER: Susi Merinomarah FU went to patient's room and she is very lethargic and does not answer questions asked. Dr. Long and Scotty Pina present in the room. I called patient's grandson, Yaakov, and left a voice message to return my call concerning discharge planning. CM will continue to follow and assist with discharge planning/needs. ENTERED DATE: 10/19/20 21:19 CT COMMENT TYPE: Discharge Planning REVIEWER: Briseida Saha CM spoke with Shama with inpatient rehab. She stated that patient has been refusing therapy the patient has only had one session since 10/15. Patient may be more appropriate for SNF. Inpatient will continue to watch patient. CM attempted to speak with patient today to see if she would consider SNF for rehab. Patient was to hard to arouse and get an answer. CM will continue to follow and assist as needed with d/c planning / needs. ENTERED DATE: 10/19/20 21:16 CT COMMENT TYPE: Discharge Planning REVIEWER: Briseida Saha LATE ENTRY 10/17/20 CM spoke with patient since she stated that she keeps telling physicians that she is to week to go home. Patient was very drowsy when CM spoke with her but she stated that she now feels like she may need rehab before she goes home. ENTERED DATE: 10/15/20 16:23 CT COMMENT TYPE: Discharge Planning REVIEWER: Susi Willams CM met with patient to discuss discharge planning/needs. Patient states she lives in a single story home with her spouse. States she has no steps to enter the home. States she has a personal primary care pediatrician named Sheri that comes to her home Monday through Monday every day and assist with meal preparation, bathing and dressing. States her does her medication management. States she has a 2 wheeled walker, but typically is in her wheelchair in the home. She has a PCP in [place], but states she cannot remember his name. I informed her of the availability of rehab, home health and additional DME, she declines needs. States "I'm going home." States her grandson will transport her. CM will continue to follow and assist with discharge planning/needs. HIP REVIEW SUMMARY ANTICIPATED D/C DATE: 10/15/2020 EXPECTED LOS : 3 CASE STATUS: DCP Initiated INITIAL REVIEW: 10/15/2020 INITIAL REVIEWER: Susi Willams FINAL DISCHARGE DISPOSITION: : FINAL REVIEWER: FINAL REVIEW DATE: [facility] Focus Questions & Answers [facility] Evaluation QUESTION: ANSWER Patient gives permission to discuss discharge plans with: (name, relationship and number) : Yaakov Soria - [phone] Patient's ability to cope with chronic illness : d. No chronic illness Patient's current cognitive status: : *Oriented to person, place, situation, time and present Patient and/or caregiver agree upon recommended discharge plan? : Yes Physical Status: : Mobility impaired Physical Status: : Partial care dependence Does the patient have the ability to pay for or attain post discharge needs / services? : Yes Partial Dependence, assistance required for: : Ambulation / Mobility Partial Dependence, assistance required for: : Bathing Partial Dependence, assistance required for: : Dressing Living Arrangements: : Home with Spouse/Significant Other Is there a likelihood that the patient will require additional services to return to the preadmission environment? : No Equipment needed for post hospitalization: : None Baseline cognitive status: : *Oriented to person, place, situation, time and present Baseline cognitive status: : Alert Living arrangements comments: : Florentino Soria Results of this evaluation have been discussed with: : Patient [facility] Does Patient have transportation to get home and to follow-up medical appointments when discharged from the hospital? : Yes Comments: : States her grandson, Yaakov will transport her home Would patient like to participate in any Care Coordination programs (if applicable): : Not applicable Does the patient have electricity at home? : Yes Equipment in use: : Cane - Single Leg Equipment in use: : Other Equipment in use: : Shower Chair Equipment in use: : Walker - Rolling Equipment in use: : Wheelchair Other Equipment comments: : Grab bars in shower Mental health screen: : No mental health history Psychosocial status: : Adult with physical limitations Abuse/Neglect: : None Resources / Services in place: : Medication assistance Resources / Services in place: : Private duty care Contact information for resources in use: : Sheri - does not know the name of the agency [facility] Re-evaluation QUESTION: ANSWER Would patient like to participate in any Care Coordination programs (if applicable): : Not applicable PATIENT: SHERI SORIA ENCOUNTER: [id number] MEDICAL RECORD#: [id number] ADMISSION DATE: 10/12/2020 DISCHARGE DATE: 10/23/2020 ATTENDING MD: BAR REYES : AGE: 84 MARITAL STATUS: M DC PLAN ID: [id number] FACILITY: [facility] PRINTED ON: 10/26/20 14:30 CT All edits/amendments must be made on the electronic document DICTATION DATE: 10/26/201429 FIELD OPERATIONS TECHNICIAN: KLAUDIA 10/26/20 143 RPT#: [id number] DC DATE:10/23/20 STATUS: DIS IN [facility] [address] [place] [address] END OF REPORT
== END 2020-10-23 13:50 | DRG 246 ==
LOC: D.ER 15:13 → D.EDHOLD 20:01 → D.M2 20:01 → D.SDCHOLD 10-14 14:24 → D.M2 10-23 13:50
PROVIDERS: Family Medicine; Internal Medicine Cardiovascular Disease; ADMIT Emergency Medicine; ATTEND Emergency Medicine
PROC: B2181ZZ Fluoroscopy of Left Internal Mammary Bypass Graft using Low Osmolar Contrast (ICD-10-PCS; 2020-10-14)
PROC: 4A023N7 Measurement of Cardiac Sampling and Pressure, Left Heart, Percutaneous Approach (ICD-10-PCS; 2020-10-14)
PROC: 027035Z Dilation of Coronary Artery, One Artery with Two Drug-eluting Intraluminal Devices, Percutaneous Approach (ICD-10-PCS; principal; 2020-10-14 14:30)
PROC: 4A023N7 Measurement of Cardiac Sampling and Pressure, Left Heart, Percutaneous Approach (ICD-10-PCS; 2020-10-14 14:30)
DX: I13.0 Hypertensive heart and chronic kidney disease with heart failure and stage 1 through stage 4 chronic kidney disease, or unspecified chronic kidney disease (principal); I21.A1 Myocardial infarction type 2; I50.23 Acute on chronic systolic (congestive) heart failure; E46 Unspecified protein-calorie malnutrition; N17.9 Acute kidney failure, unspecified; N39.0 Urinary tract infection, site not specified; I42.9 Cardiomyopathy, unspecified; Z87.820 Personal history of traumatic brain injury; F03.90 Unspecified dementia, unspecified severity, without behavioral disturbance, psychotic disturbance, mood disturbance, and anxiety; F41.9 Anxiety disorder, unspecified; I16.0 Hypertensive urgency; Z79.01 Long term (current) use of anticoagulants; Z68.22 Body mass index [BMI] 22.0-22.9, adult; N18.32 Chronic kidney disease, stage 3b